=== PATIENT | male | born 1955 | race Caucasian/White ===

== ENCOUNTER → 2016-11-11 | Outpatient (CLI) | payer OTHER ==
[~2016-11-11] MED LIST: DEPA500T3 PO; IMIT50TA PO; KETO0.5S2 EACH EYE; LEVS0.123 PO; NEXI20CA PO; PROP60TA PO; SIMV20TA PO; TOPA50TA7 PO; ZYPR5TAB PO; [UNRECOGNIZED DRUG - CODE] EACH EYE
--- NOTE | 2016-11-11 15:48 | RADRPT ---
EXAM DATE/TIME: 11/11/2016 15:23 [facility] COMPARISON: No previous studies available for comparison. INDICATIONS : Bilateral flank pain. MEDICAL HISTORY : Hypercholesterolemia. Myocardial infarction. Hypothyroidism. CVA. Hypertension. Sleep apnea. Schizoph elsy. Bipolar disorder. SURGICAL HISTORY : Tonsillectomy. Rotator cuff, right. ENCOUNTER: Initial ACUITY: 1 day PAIN SCORE: 2/10 LOCATION: Bilateral flank MEASUREMENTS: RIGHT KIDNEY: 12.3 x 5.8 x 6.3 cm LEFT KIDNEY: 12.1 x 6.1 x 6.2 cm FINDINGS: RIGHT KIDNEY: Renal cortex is normal in thickness and echotexture. No hydronephrosis, stone, or mass. LEFT KIDNEY: Renal cortex is normal in thickness and echotexture. No hydronephrosis, stone, or mass. BLADDER: The bladder demonstrates circumferential wall thickening greater than expected for the degree of dist ention. CONCLUSION: Mild circumferential bladder wall thickening is noted. The kidneys are normal. Lan Guerra MD on November 11, 2016 at 15:46 Board Certified Radiologist. This report was verified electronically.
== END ==
LOC: HRAD 14:46
PROVIDERS: ATTEND Urology
DX: N20.0 Calculus of kidney (principal)
CPT/HCPCS: 76775

== ENCOUNTER 2016-11-20 12:24 | Emergency (ER) | payer OTHER ==
[~2016-11-20] VITALS: Ht 170.2 cm; Wt 68.0 kg
[~2016-11-20 12:24] MED LIST changes: -KETO0.5S2 EACH EYE
[2016-11-20 12:27] VITALS: BP 123/87; PULSE 76; RESP 16; TEMP 97.6; O2SAT 98
--- NOTE | 2016-11-20 13:21 | PD ---
HPI Chief Complaint: Pain: Acute or Chronic Time Seen by Provider: 12:55 Travel History International Travel<30 days: No Contact w/Intl Traveler<30days: No Traveled to known affect area: No History of Present Illness HPI 61-year-old male came to the emergency room with multiple pain related complains. He says his teeth are hurting, his neck hurts and his lower back hurts. In asking he said he did have a primary care but they no longer accept his insurance. So he was given the name off another provider in male who he has to make an appointment with. Meanwhile he is on chronic pain medication and is here to get medications. He also mentioned tingling of his fingertips of both hands. He does not appear to be in any significant distress currently. [facility] Past Medical History Narrative Medical List of his past medical, surgical, social and family history was reviewed from the nursing note. Asthma: No Blood Disorders: No Bipolar Disorder: Yes Anxiety: Yes Depression: Yes Heart Rhythm Problems: No Cancer: No Cardiac Catheterization: Yes (OCTOBER 2010) Cardiovascular Problems: Yes High Cholesterol: Yes Chemotherapy: No Chest Pain: Yes ([place] 2008) Congestive Heart Failure: No COPD: No Cerebrovascular Accident: Yes Diabetes: No Diminished Hearing: Yes (L EAR HEARING AIDE) Endocrine: No Gastrointestinal Disorders: Yes (COLITIS; GASTROPARESIS) Genitourinary: No Hepatitis: No Hiatal Hernia: No Heparin Induced Thrombocytopen: No Hypertension: Yes Immune Disorder: No Implanted Vascular Access Dvce: No Medical other: No Musculoskeletal: Yes (LOW BACK PAIN ) Neurologic: Yes (EPILEPSY , TRAUMATIC BRAIN INJURY ) Psychiatric: Yes (ANXIETY, DEPRESSION, PTSD) Reproductive: No Respiratory: Yes Myocardial Infarction: Yes (PER PT HAD IL IN [facility], REFUSED CARDIAC CATH) Schizophrenia: Yes Seizures: Yes Sleep Apnea: Yes (wears cpap) Thyroid Disease: Yes Influenza Vaccination: Yes PNEUMOCCOCAL Vaccine (Year): 3 Past Surgical History Abdominal Surgery: No AICD: No Body Medical Devices: NONE Cardiac Surgery: No Coronary Artery Bypass Graft: No Ear Surgery: No Eye Surgery: No Genitourinary Surgery: No Joint Replacement: No Oral Surgery: No Pacemaker: No Thoracic Surgery: No Other Surgery: Yes (SHOULDER RIGHT, LEFT WRIST) Family History Family Myocardial Infarction: No Social History Alcohol Use: No Tobacco Use: Yes (3 CIGARETTES A DAY) Substance Use: No Allergies-Medications (Allergen,Severity, Reaction): Coded Allergies: Benadryl (Verified Allergy, Severe, 11/20/16) RASH Chicken Meat (Verified Allergy, Severe, Rash, 11/20/16) Latex (Verified Allergy, Severe, Hives, 11/20/16) Morphine (Verified Allergy, Severe, RASH, 11/20/16) ITCHING AT IV SITE; LARGE REDDENED SCABS Motrin (Verified Allergy, Severe, Rash, 11/20/16) Oily Fish (Verified Allergy, Severe, 11/20/16) UNABLE TO CONFIRM Tylenol (Verified Allergy, Severe, 11/20/16) UNABLE TO CONFIRM Adhesives (Verified Allergy, Unknown, 11/20/16) Comments List of his allergies reviewed from the nursing note. Reported Meds & Prescriptions Reported Meds & Active Scripts Active Reported Zyprexa (Olanzapine) 5 Mg Tab 5 Mg PO HS Topamax (Topiramate) 50 Mg Tab 50 Mg PO BID Simvastatin 20 Mg Tab 20 Mg PO DAILY Propranolol (Propranolol HCl) 60 Mg Tab 60 Mg PO DAILY PRN Ketorolac Opth Drops 0.4% Drops 1 Drop EACH EYE Imitrex (Sumatriptan Succinate) 50 Mg Tab 50 Mg PO ONCE PRN If a satisfactory response has not been obtained at 2 hours, a second dose may be administered Levsin (Hyoscyamine Sulfate) 0.125 Mg Tab 0.125 Mg PO Q4H Depakote ER (Divalproex Sodium) 500 Mg Catrina 500 Mg PO BID Nexium (Esomeprazole DR) 20 Mg Capdr 20 Mg PO DAILY Narrative Medication List of his home medications reviewed from the nursing note. Review of Systems Except as stated in HPI: all other systems reviewed are Neg Physical Exam Narrative GENERAL: Awake, alert, no obvious distress SKIN: Focused skin assessment warm/dry. HEAD: Atraumatic. Normocephalic. EYES: Pupils equal and round. No scleral icterus. No injection or drainage. ENT: No nasal bleeding or discharge. Mucous membranes pink and moist. NECK: Trachea midline. No JVD. CARDIOVASCULAR: Regular rate and rhythm. No murmur appreciated. RESPIRATORY: No accessory muscle use. Clear to auscultation. Breath sounds equal bilaterally. GASTROINTESTINAL: Abdomen soft, non-tender, nondistended. Hepatic and splenic margins not palpable. MUSCULOSKELETAL: No obvious deformities. No clubbing. No cyanosis. No edema. NEUROLOGICAL: Awake and alert. No obvious cranial nerve deficits. Motor grossly within normal limits. Normal speech. PSYCHIATRIC: Appropriate mood and affect; insight and judgment normal. Data Data Last Documented VS Orders Acetamin-Hydrocod 325-5 Mg ([place] 5-325 (11/20/16 13:30) MDM Medical Decision Making Medical Screen Exam Complete: Yes Emergency Medical Condition: Yes Medical Record Reviewed: Yes Differential Diagnosis Acute on chronic pain, prescription refill Narrative Course 1:34 PM I have expressed to the patient that I am willing to give him pain medication in the emergency room but for his chronic pain management he needs to go to his primary care physician is not the right place for this. He will be discharged home. Procedures EKG Prior to Arrival: No Diagnosis Primary Impression: Chronic pain Qualified Code: G89.4 - Chronic pain syndrome Referrals: Primary Care Physician 1 week Additional Instructions: Please follow-up with your primary care to get a prescription refills. Emergency room should be utilized for emergencies only. Med/Other Pt SpecificInfo: No Change to Meds Disposition: 01 DISCHARGE HOME Condition: Deepti Arndt MD Nov 20, 2016 13:21 Additional Instructions: Please follow-up with your primary care to get a prescription refills. Emergency room should be utilized for emergencies only. Med/Other Pt SpecificInfo: No Change to Meds Disposition: 01 DISCHARGE HOME Condition: Deepti Arndt MD Nov 20, 2016 13:21
[2016-11-20] MEDS ORDERED: ACETAMINOPHEN/HYDROcodone 325 MG/5 MG TAB PO ONE (13:30)
[2016-11-20 13:52] VITALS: BP 120/84; PULSE 76; RESP 18; O2SAT 98
[2017-01-30] MEDS ORDERED: KETO0.5S2 EACH EYE (13:43)
== END 2016-11-20 13:54 | disposition home or self-care (01) ==
LOC: PHED 12:24
DX: G89.4 Chronic pain syndrome (principal); M54.2 Cervicalgia; M54.5 Low back pain; R20.2 Paresthesia of skin; I10 Essential (primary) hypertension; E07.9 Disorder of thyroid, unspecified; E78.00 Pure hypercholesterolemia, unspecified; G47.30 Sleep apnea, unspecified; H91.92 Unspecified hearing loss, left ear; Z72.0 Tobacco use; Z86.79 Personal history of other diseases of the circulatory system; Z87.19 Personal history of other diseases of the digestive system; Z86.69 Personal history of other diseases of the nervous system and sense organs; Z86.59 Personal history of other mental and behavioral disorders
CPT/HCPCS: 99283

== ENCOUNTER → 2016-12-31 | Outpatient (CLI) | payer OTHER ==
[~2016-12-31] MED LIST changes: +KETO0.5S2 EACH EYE
--- NOTE | 2016-12-31 09:42 | RADRPT ---
EXAM DATE/TIME: 12/31/2016 09:24 [facility] COMPARISON: CHEST PA & LAT, October 22, 2014, 14:42. INDICATIONS : Short of breath, asthma, sleep apnea MEDICAL HISTORY : Myocardial infarction. Hypothyroidism. CVA, schizophrenia, sleep apnea SURGICAL HISTORY : Tonsillectomy. right shoulder surgery ENCOUNTER: Initial ACUITY: 1 day PAIN SCORE: 0/10 LOCATION: Bilateral chest FINDINGS: PA and lateral views of the chest demonstrate the lungs to be symmetrically aerated without evidence of mass, infiltrate or effusion. The cardiomediastinal contours are unremarkable. Osseous structure s are intact. CONCLUSION: No acute intrathoracic disease. Dev Burton MD on December 31, 2016 at 9:40 Board Certified Radiologist. This report was verified electronically.
== END ==
LOC: HRAD 08:51
PROVIDERS: ATTEND Family Medicine Geriatric Medicine
DX: J45.909 Unspecified asthma, uncomplicated (principal); F17.290 Nicotine dependence, other tobacco product, uncomplicated
CPT/HCPCS: 71020

== ENCOUNTER 2017-03-06 13:27 | Emergency (ER) | payer OTHER ==
[~2017-03-06] VITALS: Ht 170.2 cm; Wt 67.0 kg
[~2017-03-06 13:27] MED LIST changes: -IMIT50TA PO; -SIMV20TA PO; -TOPA50TA7 PO; -[UNRECOGNIZED DRUG - CODE] EACH EYE
[2017-03-06 14:30] VITALS: BP 116/73; PULSE 55; PULSE 62; RESP 18; TEMP 97.7; O2SAT 98; O2SAT 99
[2017-03-06] MEDS ORDERED: ASPIRIN 81 MG CHEW TAB PO ONE (14:30)
[2017-03-06] MEDS ORDERED: SODIUM CHLORIDE 0.9% FLUSH 10 ML FLUSH IVF PRN (14:30)
[2017-03-06] MEDS ORDERED: DIVALPROEX SODIUM E.R. 500 MG TAB PO ONE (15:00)
[2017-03-06] MEDS ORDERED: oxyCODONE/ACETAMINOPHEN 5 MG/325 MG TAB PO ONE (15:00)
--- NOTE | 2017-03-06 15:09 | RADRPT ---
EXAM DATE/TIME: 03/06/2017 14:33 [facility] COMPARISON: CHEST SINGLE AP, January 15, 2016, 11:57. INDICATIONS : Chest pain today. MEDICAL HISTORY : Hypertension. Myocardial infarction. SURGICAL HISTORY : None. ENCOUNTER: Initial ACUITY: 1 day PAIN SCORE: 9/10 LOCATION: Bilateral chest FINDINGS: A single view of the chest demonstrates the lungs to be symmetrically aerated without evidence of mas s, infiltrate or effusion. The cardiomediastinal contours are unremarkable. Osseous structures are intact. CONCLUSION: No acute disease. Pio King MD on March 06, 2017 at 15:06 Board Certified Radiologist. This report was verified electronically.
[2017-03-06 15:29] LABS: AUTOMATED NEUTROPHIL # 6.5 TH/MM3 (1.8-7.7); BASOPHIL # 0.1 TH/MM3 (0-0.2); BASOPHIL % 0.6 % (0.0-2.0); EOSINOPHIL # 0.1 TH/MM3 (0-0.4); EOSINOPHIL % 0.7 % (0.0-4.0); HEMATOCRIT 41.5 % (39.0-51.0); HEMO FLAGS DIFF FINAL; LYMPH % 19.3 % (9.0-44.0); LYMPHOCYTE # 1.7 TH/MM3 (1.0-4.8); MEAN CELL VOLUME 90.3 FL (80.0-100.0); MEAN CORPUSCULAR HEMOGLOBIN 30.9 PG (27.0-34.0); MEAN CORPUSCULAR HGB CONC 34.2 % (32.0-36.0); MONO % 5.3 % (0.0-8.0); NEUT % 74.1 % (16.0-70.0); PLATELET COUNT 213 TH/MM3 (150-450); RED CELL DISTRIBUTION WIDTH 13.5 % (11.6-17.2); WHITE BLOOD COUNT 8.8 TH/MM3 (4.0-11.0)
[2017-03-06 15:43] LABS: APTT (PATIENT) 28.5 SEC (24.3-30.1); INTERNATIONAL NORMALIZED RATIO 1.2 RATIO; PROTHROMBIN TIME - PATIENT 12.9 SEC (9.8-11.6)
[2017-03-06 15:46] LABS: ANION GAP 9 MEQ/L (5-15); BLOOD UREA NITROGEN 12 MG/DL (7-18); CHLORIDE 105 MEQ/L (98-107); GLOMERULAR FILTRATION RATE 102 ML/MIN (>89); POTASSIUM 3.3 MEQ/L (3.5-5.1); SODIUM (NA) 139 MEQ/L (136-145)
[2017-03-06 15:57] LABS: CREATINE KINASE 88 U/L (39-308)
[2017-03-06 16:15] VITALS: BP 103/68; PULSE 64; RESP 18; O2SAT 99
--- NOTE | 2017-03-06 16:41 | PD ---
HPI Chief Complaint: Chest Pain Time Seen by Provider: 13:54 Travel History International Travel<30 days: No Contact w/Intl Traveler<30days: No Traveled to known affect area: No History of Present Illness HPI Patient is a 61-year-old male who comes in complaining of chest pain. He says he went to the bank and he started to feel pressure in his chest as well as shortness of breath. He has history of asthma, but has not tried his albuterol inhaler. He denies nausea or vomiting. He has not had fever or chills. Denies cough or cold. PFSH Past Medical History Asthma: No Blood Disorders: No Bipolar Disorder: Yes Anxiety: Yes Depression: Yes Heart Rhythm Problems: No Cancer: No Cardiac Catheterization: Yes (OCTOBER 2010) Cardiovascular Problems: Yes ([place] 2 YEARS AGO) High Cholesterol: Yes Chemotherapy: No Chest Pain: Yes ([place] 2008) Congestive Heart Failure: No COPD: No Cerebrovascular Accident: Yes Diabetes: No Diminished Hearing: Yes (L EAR HEARING AIDE) Endocrine: No Gastrointestinal Disorders: Yes (COLITIS; GASTROPARESIS) Genitourinary: No Hepatitis: No Hiatal Hernia: No Heparin Induced Thrombocytopen: No Hypertension: Yes Immune Disorder: No Implanted Vascular Access Dvce: No Musculoskeletal: Yes (LOW BACK PAIN ) Neurologic: Yes (EPILEPSY , TRAUMATIC BRAIN INJURY ) Psychiatric: Yes (ANXIETY, DEPRESSION, PTSD) Reproductive: No Respiratory: Yes Myocardial Infarction: Yes (PER PT HAD [facility] IN [facility], REFUSED CARDIAC CATH) Schizophrenia: Yes Seizures: Yes Sleep Apnea: Yes (wears cpap) Thyroid Disease: Yes Tetanus Vaccination: Unknown Influenza Vaccination: Yes PNEUMOCCOCAL Vaccine (Year): 3 ?: Not Past Surgical History Abdominal Surgery: No AICD: No Body Medical Devices: NONE Cardiac Surgery: No Coronary Artery Bypass Graft: No Ear Surgery: No Eye Surgery: No Genitourinary Surgery: No Joint Replacement: No Oral Surgery: No Pacemaker: No Thoracic Surgery: No Other Surgery: Yes (SHOULDER RIGHT, LEFT WRIST) Social History Alcohol Use: Yes (RARELY TWICE A YEAR) Tobacco Use: Yes (3 CIGARETTES A DAY) Substance Use: No Allergies-Medications (Allergen,Severity, Reaction): Coded Allergies: Benadryl (Verified Allergy, Severe, 01/30/17) RASH Chicken Meat (Verified Allergy, Severe, Rash, 01/30/17) Latex (Verified Allergy, Severe, Hives, 01/30/17) Morphine (Verified Allergy, Severe, RASH, 01/30/17) ITCHING AT IV SITE; LARGE REDDENED SCABS Motrin (Verified Allergy, Severe, Rash, 01/30/17) Oily Fish (Verified Allergy, Severe, 01/30/17) UNABLE TO CONFIRM Tylenol (Verified Allergy, Severe, 01/30/17) UNABLE TO CONFIRM Adhesives (Verified Allergy, Unknown, 01/30/17) Reported Meds & Prescriptions Reported Meds & Active Scripts Active Reported Ketorolac Opth Drops 0.5% Drops 1 Drop EACH EYE Zyprexa (Olanzapine) 5 Mg Tab 5 Mg PO HS Propranolol (Propranolol HCl) 60 Mg Tab 60 Mg PO DAILY PRN Levsin (Hyoscyamine Sulfate) 0.125 Mg Tab 0.125 Mg PO Q4H Depakote ER (Divalproex Sodium) 500 Mg Catrina 500 Mg PO BID Nexium (Esomeprazole DR) 20 Mg Capdr 20 Mg PO DAILY Review of Systems Except as stated in HPI: all other systems reviewed are Neg General / Constitutional: No: Fever, Chills Eyes: No: Blurred Vision HENT: No: Headaches, Lightheadedness Cardiovascular: Positive: Chest Pain or Discomfort Respiratory: Positive: Shortness of Breath Gastrointestinal: No: Nausea, Vomiting Genitourinary: No: Dysuria Skin: No Rash, No Itching Neurologic: No: Weakness, Dizziness Physical Exam Narrative GENERAL: Awake and alert, in no acute distress. SKIN: Focused skin assessment warm/dry. HEAD: Atraumatic. Normocephalic. EYES: Pupils equal and round. No scleral icterus. ENT: Mucous membranes pink and moist. NECK: Trachea midline. No JVD. CARDIOVASCULAR: Regular rate and rhythm. No murmur appreciated. RESPIRATORY: No accessory muscle use. Lightly decreased breath sounds on the right. Breath sounds equal bilaterally. GASTROINTESTINAL: Abdomen soft, non-tender, nondistended. MUSCULOSKELETAL: No obvious deformities. No clubbing. No cyanosis. No edema. NEUROLOGICAL: Awake and alert. No obvious cranial nerve deficits. Motor grossly within normal limits. Normal speech. PSYCHIATRIC: Appropriate mood and affect; insight and judgment normal. Data Data Last Documented VS Vital Signs Date Time Temp Pulse Resp B/P Pulse Ox O2 Delivery O2 Flow Rate FiO2 03/06/17 16:15 64 18 103/68 99 Room Air 03/06/17 14:30 97.7 Orders Electrocardiogram (03/06/17 14:30) Basic Metabolic Panel (Bmp) (03/06/17 14:30) Ckmb (Isoenzyme) Profile (03/06/17 14:30) Complete Blood Count With Diff (03/06/17 14:30) Prothrombin Time / Inr (Pt) (03/06/17 14:30) Act Partial Throm Time (Ptt) (03/06/17 14:30) Troponin I (03/06/17 14:30) Chest, Single Ap (03/06/17 14:30) Ecg Monitoring (03/06/17 14:30) Bilateral Bp Monitoring (03/06/17 14:30) Iv Access Insert/Monitor (03/06/17 14:30) Oximetry (03/06/17 14:30) Oxygen Administration (03/06/17 14:30) Aspirin Chew (Aspirin Chew) (03/06/17 14:30) Sodium Chloride 0.9% Flush (Ns Flush) (03/06/17 14:30) Divalproex Er (Depakote Er) (03/06/17 15:00) Oxycodone-Acetamin 5-325 Mg (Percocet (03/06/17 15:00) Labs Laboratory Tests Test 03/06/17 14:55 White Blood Count 8.8 TH/MM3 Red Blood Count 4.60 MIL/MM3 Hemoglobin 14.2 GM/DL Hematocrit 41.5 % Mean Corpuscular Volume 90.3 FL Mean Corpuscular Hemoglobin 30.9 PG Mean Corpuscular Hemoglobin 34.2 % Concent Red Cell Distribution Width 13.5 % Platelet Count 213 TH/MM3 Mean Platelet Volume 7.4 FL Neutrophils (%) (Auto) 74.1 % Lymphocytes (%) (Auto) 19.3 % Monocytes (%) (Auto) 5.3 % Eosinophils (%) (Auto) 0.7 % Basophils (%) (Auto) 0.6 % Neutrophils # (Auto) 6.5 TH/MM3 Lymphocytes # (Auto) 1.7 TH/MM3 Monocytes # (Auto) 0.5 TH/MM3 Eosinophils # (Auto) 0.1 TH/MM3 Basophils # (Auto) 0.1 TH/MM3 CBC Comment DIFF FINAL Differential Comment Prothrombin Time 12.9 SEC Prothromb Time International 1.2 RATIO Ratio Activated Partial 28.5 SEC Thromboplast Time Sodium Level 139 MEQ/L Potassium Level 3.3 MEQ/L Chloride Level 105 MEQ/L Carbon Dioxide Level 25.0 MEQ/L Anion Gap 9 MEQ/L Blood Urea Nitrogen 12 MG/DL Creatinine 0.77 MG/DL Estimat Glomerular Filtration 102 ML/MIN Rate Random Glucose 86 MG/DL Calcium Level 9.0 MG/DL Total Creatine Kinase 88 U/L Troponin I LESS THAN 0.02 NG/ML MDM Medical Decision Making Medical Screen Exam Complete: Yes Emergency Medical Condition: Yes Medical Record Reviewed: Yes Interpretation(s) ECG show sinus kulwant at 58, no ST elevation or depression Differential Diagnosis ACS versus NSTEMI versus STEMI Narrative Course Patient is a 61-year-old male who comes in complaining of chest pain. Exam shows no acute abnormalities. IV established, labs sent. Patient connected to the twister hand. Labs show no acute abnormalities. Patient given aspirin as well as a Percocet for pain. Given a DuoNeb. Chest x-ray shows no acute abnormalities. Patient advised he should stay in the chest pain center for further evaluation. Advised that we could not rule out a heart attack with just 1 testing in the emergency department. I advised that if he leaves he could have a massive heart attack and . He voices understanding of these risks and would like to leave AGAINST MEDICAL ADVICE. He is alert and oriented 3. AMA: The risks of leaving against medical advice without further evaluation treatment were discussed with the patient. These risks include cardiac dysfunction, cardiac dysrhythmia, possible heart attack, possible stroke or . The patient indicated understanding of these risks and appeared to have the capacity to make this decision. Diagnosis Primary Impression: Chest pain Qualified Code: R07.9 - Chest pain, unspecified type Disposition: AGAINST MEDICAL ADVICE Condition: Stable Melissa Pederson MD Mar 06, 2017 16:41
--- NOTE | 2017-03-07 10:15 | EKG ---
Date Performed: 03/06/2017 Time Performed: 15:16:08 PTAGE: 61 years EKG: SINUS BRADYCARDIA WITH SINUS ARRHYTHMIA MARKED LEFT AXIS DEVIATION ABNORMAL ECG Since PREVIOUS TRACING , no significant change noted PREVIOUS TRACIN01/15/2016 11.51 DOCTOR: Ramez Gonzalez Interpretating Date/Time 03/07/2017 10:14:06
== END 2017-03-06 17:16 | disposition left against medical advice (07) ==
LOC: NEPE 13:27
DX: R07.9 Chest pain, unspecified (principal); I10 Essential (primary) hypertension; E78.00 Pure hypercholesterolemia, unspecified; R94.31 Abnormal electrocardiogram [ECG] [EKG]
CPT/HCPCS: 71010; 80048; 82550; 84484; 85025; 85610; 85730; 93005; 99285

== ENCOUNTER 2017-07-16 22:32 | Emergency (ER) | payer OTHER ==
[~2017-07-16] VITALS: Ht 172.7 cm; Wt 60.0 kg
[2017-07-16 22:47] VITALS: BP 104/75; PULSE 67; RESP 16; TEMP 98.4; O2SAT 99
--- NOTE | 2017-07-16 23:24 | RADRPT ---
EXAM DATE/TIME: 07/16/2017 23:12 [facility] COMPARISON: CHEST SINGLE AP, March 06, 2017, 14:33. CHEST PA & LAT, December 31, 2016, 9:24. INDICATIONS : Chest pain. MEDICAL HISTORY : Hypertension. Myocardial infarction. SURGICAL HISTORY : None. ENCOUNTER: Initial ACUITY: 1 day PAIN SCORE: 7/10 LOCATION: Bilateral chest FINDINGS: PA and lateral views of the chest demonstrate the lungs to be symmetrically aerated without evidence of mass, infiltrate or effusion. The cardiomediastinal contours are unremarkable. Osseous structure s are intact. CONCLUSION: No acute cardiopulmonary disease. Bennett Moreno MD on July 16, 2017 at 23:22 Board Certified Radiologist. This report was verified electronically.
--- NOTE | 2017-07-16 23:57 | PD ---
HPI Chief Complaint: Chest Pain Time Seen by Provider: 22:39 Travel History International Travel<30 days: No Contact w/Intl Traveler<30days: No Traveled to known affect area: No History of Present Illness HPI pt reports walking in the street then doubling over in CP left sided feel hit his left ribs on concrete and then call 911 for CP and fall. History of CAD and he describes "some clotted artery in back of neck" poor historian and vague details of syncope vs pain related collapse, unclear if LOC . 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) Endocrine: No Gastrointestinal Disorders: Yes (COLITIS; GASTROPARESIS) Genitourinary: No Hepatitis: No Hiatal Hernia: No Heparin Induced Thrombocytopen: No Hypertension: Yes Immune Disorder: No Implanted Vascular Access Dvce: No Medical other: No Musculoskeletal: Yes (LOW BACK PAIN ) Neurologic: Yes (EPILEPSY , TRAUMATIC BRAIN INJURY ) Psychiatric: Yes (ANXIETY, DEPRESSION, PTSD) Reproductive: No Respiratory: Yes Myocardial Infarction: Yes (PER PT HAD NM IN [facility], REFUSED CARDIAC CATH) Schizophrenia: Yes Seizures: Yes Sleep Apnea: Yes (wears cpap) Thyroid Disease: Yes PNEUMOCCOCAL Vaccine (Year): 3 Past Surgical History Abdominal Surgery: No AICD: No Body Medical Devices: NONE Cardiac Surgery: No Coronary Artery Bypass Graft: No Ear Surgery: No Eye Surgery: No Genitourinary Surgery: No Joint Replacement: No Oral Surgery: No Pacemaker: No Thoracic Surgery: No Other Surgery: Yes (SHOULDER RIGHT, LEFT WRIST) Social History Alcohol Use: Yes (1 OR 2 A MONTH) Tobacco Use: Yes (1 PPD) Substance Use: Yes (MARIJUANA) Allergies-Medications (Allergen,Severity, Reaction): Coded Allergies: acetaminophen (Unverified Allergy, Severe, 07/16/17) UNABLE TO CONFIRM chicken derived (Unverified Allergy, Severe, Rash, 07/16/17) diphenhydramine (Unverified Allergy, Severe, 07/16/17) RASH fish oil (Unverified Allergy, Severe, 07/16/17) UNABLE TO CONFIRM ibuprofen (Unverified Allergy, Severe, Rash, 07/16/17) latex (Unverified Allergy, Severe, Hives, 07/16/17) morphine (Unverified Allergy, Severe, RASH, 07/16/17) ITCHING AT IV SITE; LARGE REDDENED SCABS adhesive (Unverified Allergy, Unknown, 07/16/17) Reported Meds & Prescriptions Reported Meds & Active Scripts Active Calcium 500 +D (Calcium Carbonate-Cholecalciferol) 500-400 Mg-Unit Tab 1 Tab PO DAILY Potassium Chloride ER (Potassium Chloride) 20 Meq Tab 20 Meq PO DAILY Reported Ketorolac Opth Drops 0.5% Drops 1 Drop EACH EYE Zyprexa (Olanzapine) 5 Mg Tab 5 Mg PO HS Propranolol (Propranolol HCl) 60 Mg Tab 60 Mg PO DAILY PRN Levsin (Hyoscyamine Sulfate) 0.125 Mg Tab 0.125 Mg PO Q4H Depakote ER (Divalproex Sodium) 500 Mg Catrina 500 Mg PO BID Nexium (Esomeprazole DR) 20 Mg Capdr 20 Mg PO DAILY Review of Systems Except as stated in HPI: all other systems reviewed are Neg Cardiovascular: Positive: Chest Pain or Discomfort, Syncope Physical Exam Narrative GENERAL: Nontoxic-appearing awake alert no signs of sepsis SKIN: Warm and dry. HEAD: Atraumatic. Normocephalic. EYES: Pupils equal and round. No scleral icterus. No injection or drainage. ENT: No nasal bleeding or discharge. Mucous membranes pink and moist. NECK: Trachea midline. No JVD. CARDIOVASCULAR: Regular rate and rhythm. chest tenderness where he fell lateral left ribs , no step off felt and no crepitus RESPIRATORY: No accessory muscle use. Clear to auscultation. Breath sounds equal bilaterally. GASTROINTESTINAL: Abdomen soft, non-tender, nondistended. Hepatic and splenic margins not palpable. MUSCULOSKELETAL: Extremities without clubbing, cyanosis, or edema. No obvious deformities. NEUROLOGICAL: Awake and alert. No obvious cranial nerve deficits. Motor grossly within normal limits. Five out of 5 muscle strength in the arms and legs. Normal speech. PSYCHIATRIC: Appropriate mood and affect; insight and judgment normal. Data Data Last Documented VS Orders Orders Electrocardiogram (07/16/17 22:54) Complete Blood Count With Diff (07/16/17 22:54) Comprehensive Metabolic Panel (07/16/17 22:54) Troponin I (07/16/17 22:54) Lipase (07/16/17 22:54) Chest, Pa & Lat (07/16/17 ) Potassium Chloride (Kcl) (07/17/17 00:45) Calcium Carbonate (Oscal) (07/17/17 00:45) Ketorolac Inj (Toradol Inj) (07/17/17 02:15) Orthostatic Vital Signs (07/17/17 02:55) Troponin I (07/17/17 02:56) Electrocardiogram (07/17/17 ) Ed Discharge Order (07/17/17 03:43) Labs Laboratory Tests Test 07/16/17 23:02 07/17/17 03:02 White Blood Count 6.5 TH/MM3 Red Blood Count 4.34 MIL/MM3 Hemoglobin 14.0 GM/DL Hematocrit 40.6 % Mean Corpuscular Volume 93.5 FL Mean Corpuscular Hemoglobin 32.3 PG Mean Corpuscular Hemoglobin Concent 34.5 % Red Cell Distribution Width 14.7 % Platelet Count 203 TH/MM3 Mean Platelet Volume 8.0 FL Neutrophils (%) (Auto) 51.3 % Lymphocytes (%) (Auto) 41.1 % Monocytes (%) (Auto) 5.4 % Eosinophils (%) (Auto) 1.2 % Basophils (%) (Auto) 1.0 % Neutrophils # (Auto) 3.3 TH/MM3 Lymphocytes # (Auto) 2.7 TH/MM3 Monocytes # (Auto) 0.3 TH/MM3 Eosinophils # (Auto) 0.1 TH/MM3 Basophils # (Auto) 0.1 TH/MM3 CBC Comment AUTO DIFF Differential Comment AUTO DIFF CONFIRMED Platelet Estimate NORMAL Platelet Morphology Comment NORMAL Acanthocytes 1+ Blood Urea Nitrogen 12 MG/DL Creatinine 0.54 MG/DL Random Glucose 73 MG/DL Total Protein 5.5 GM/DL Albumin 2.8 GM/DL Calcium Level 7.2 MG/DL Alkaline Phosphatase 50 U/L Aspartate Amino Transf (AST/SGOT) 14 U/L Alanine Aminotransferase (ALT/SGPT) 23 U/L Total Bilirubin 0.4 MG/DL Sodium Level 144 MEQ/L Potassium Level 3.1 MEQ/L Chloride Level 112 MEQ/L Carbon Dioxide Level 23.7 MEQ/L Anion Gap 8 MEQ/L Estimat Glomerular Filtration Rate 154 ML/MIN Protein Corrected Calcium 8.1 MG/DL Troponin I LESS THAN 0.02 NG/ML LESS THAN 0.02 NG/ML Lipase 112 U/L [facility] Medical Decision Making Medical Screen Exam Complete: Yes Emergency Medical Condition: Yes Interpretation(s) EKG NSR rate 57 Differential Diagnosis Chest pain from myocardial ischemia versus chest pain of acid reflux gastritis versus pulmonary contusion versus costochondritis versus rib contusion Narrative Course 2 EKGs and 2 troponins are negative patient is observed in the ER for 5 hours no arrhythmias are noted he is replaced his potassium replaced his calcium and he is discharged follow-up as an outpatient Diagnosis Primary Impression: Chest pain Qualified Codes: R07.9 - Chest pain, unspecified Additional Impression: Syncope, near Patient Instructions: Chest Pain (ED), General Instructions Scripts Calcium Carbonate-Cholecalciferol (Calcium 500 +D) 500-400 Mg-Unit Tab 1 TAB PO DAILY for Calcium Supplement, #30 TAB 0 Refills Prov: Pranay Dockery MD 07/17/17 Potassium Chloride ER (Potassium Chloride ER) 20 Meq Tab 20 MEQ PO DAILY for Electrolyte Replacement, #30 TAB 0 Refills Prov: Pranay Dockery MD 07/17/17 Disposition: 01 DISCHARGE HOME Condition: Good Pranay Dockery MD Jul 16, 2017 23:57
[2017-07-17 00:04] LABS: AUTOMATED NEUTROPHIL # 3.3 TH/MM3 (1.8-7.7); BASOPHIL # 0.1 TH/MM3 (0-0.2); EOSINOPHIL # 0.1 TH/MM3 (0-0.4); EOSINOPHIL % 1.2 % (0.0-4.0); HEMATOCRIT 40.6 % (39.0-51.0); LYMPH % 41.1 % (9.0-44.0); LYMPHOCYTE # 2.7 TH/MM3 (1.0-4.8); MEAN CELL VOLUME 93.5 FL (80.0-100.0); MEAN CORPUSCULAR HEMOGLOBIN 32.3 PG (27.0-34.0); MEAN CORPUSCULAR HGB CONC 34.5 % (32.0-36.0); MONO % 5.4 % (0.0-8.0); NEUT % 51.3 % (16.0-70.0); PLATELET COUNT 203 TH/MM3 (150-450); RED BLOOD COUNT 4.34 MIL/MM3 (4.50-5.90); RED CELL DISTRIBUTION WIDTH 14.7 % (11.6-17.2); WHITE BLOOD COUNT 6.5 TH/MM3 (4.0-11.0)
[2017-07-17 00:18] LABS: HEMO FLAGS AUTO DIFF
[2017-07-17 00:24] LABS: ALKALINE PHOSPHATASE 50 U/L (45-117); ALT (GPT) 23 U/L (12-78); ANION GAP 8 MEQ/L (5-15); AST (GOT) 14 U/L (15-37); BICARBONATE 23.7 MEQ/L (21.0-32.0); BLOOD UREA NITROGEN 12 MG/DL (7-18); CALCIUM-PROTEIN CORRECTED 8.1 MG/DL (8.5-10.1); CHLORIDE 112 MEQ/L (98-107); GLOMERULAR FILTRATION RATE 154 ML/MIN (>89); POTASSIUM 3.1 MEQ/L (3.5-5.1); SODIUM (NA) 144 MEQ/L (136-145); TOTAL BILIRUBIN ADULT 0.4 MG/DL (0.2-1.0)
[2017-07-17 00:34] VITALS: BP 110/59; PULSE 56; RESP 16; O2SAT 98
[2017-07-17] MEDS ORDERED: POTASSIUM CHLORIDE 20 MEQ CONTROLLED RELEASE TAB PO ONE (00:45)
[2017-07-17] MEDS ORDERED: CALCIUM CARBONATE 1.25 GM (CA 500 MG) TAB PO SCH (00:45)
[2017-07-17 01:03] LABS: SCAN/DIFF AUTO DIFF CONFIRMED
[2017-07-17 01:04] LABS: PLATELET ESTIMATE SMEAR NORMAL (NORMAL); PLATELET MORPHOLOGY NORMAL (NORMAL)
[2017-07-17 01:05] LABS: ACANTHOCYTES 1+ (NORMAL)
[2017-07-17 02:01] VITALS: BP 129/65; PULSE 76; RESP 16; O2SAT 98
[2017-07-17] MEDS ORDERED: KETOROLAC TROMETHAMINE 30 MG/ML (IVP) VIAL IV PUSH ONE (02:15)
[2017-07-17 03:00] VITALS: BP_SYST 102; BP_SYST 105; BP_SYST 108; BP_DIAS 57; BP_DIAS 70; BP_DIAS 80; RESP 16
[2017-07-17] MEDS ORDERED: POTA-163 PO (04:06)
[2017-07-17] MEDS ORDERED: CALC1TAB12 PO (04:06)
--- NOTE | 2017-07-17 14:04 | EKG ---
Date Performed: 07/16/2017 Time Performed: 22:44:25 PTAGE: 61 years EKG: Sinus rhythm SEPTAL MYOCARDIAL INFARCTION ABNORMAL ECG Compared to prior tracing no significant change PREVIOUS TRACING DOCTOR: Sommer Avery Interpretating Date/Time 07/17/2017 14:03:32
--- NOTE | 2017-07-17 14:06 | EKG ---
Date Performed: 07/17/2017 Time Performed: 03:14:15 PTAGE: 61 years EKG: SINUS BRADYCARDIA POSSIBLE RIGHT VENTRICULAR CONDUCTION DELAY SEPTAL MYOCARDIAL INFARCTION ABNORMAL ECG Compared to prior tracing no significant change PREVIOUS TRACING : 03/06/2017 15.16 DOCTOR: Sommer Avery Interpretating Date/Time 07/17/2017 14:03:51
== END 2017-07-17 04:07 | disposition home or self-care (01) ==
LOC: NEPC 22:32
DX: R07.9 Chest pain, unspecified (principal); R55 Syncope and collapse; R94.31 Abnormal electrocardiogram [ECG] [EKG]; R00.1 Bradycardia, unspecified; I25.2 Old myocardial infarction; I25.10 Atherosclerotic heart disease of native coronary artery without angina pectoris; I10 Essential (primary) hypertension; G40.909 Epilepsy, unspecified, not intractable, without status epilepticus; E07.9 Disorder of thyroid, unspecified; F17.200 Nicotine dependence, unspecified, uncomplicated
CPT/HCPCS: 71020; 80053; 83690; 84484; 85025; 93005; 96374; 99285; J1885

== ENCOUNTER 2017-09-09 12:19 | Emergency (ER) | payer OTHER ==
[~2017-09-09 12:19] MED LIST changes: +CALC1TAB12 PO; +POTA-163 PO
[2017-09-09 12:32] VITALS: BP 148/78; PULSE 98; RESP 18; TEMP 97.9; O2SAT 99
[2017-09-09 13:01] LABS: BILIRUBIN, URINE NEG (NEG); BLOOD, URINE NEG (NEG); GLUCOSE,URINE NEG (NEG); HYALINE CAST, URINE 2 /lpf (RARE); KETONE, URINE 10 mg/dL (NEG); MUCUS URINE MANY /lpf (OCC); NITRITE,URINE NEG (NEG); URINE COLOR YELLOW (YELLW/STRAW); URINE LEUKOCYTE ESTERASE NEG (NEG)
[2017-09-09 13:10] LABS: ALKALINE PHOSPHATASE 78 U/L (45-117); CREATININE 1.04 MG/DL (0.60-1.30); GLOMERULAR FILTRATION RATE 72 ML/MIN (>89); TOTAL BILIRUBIN ADULT 0.9 MG/DL (0.2-1.0); TOTAL PROTEIN 7.6 GM/DL (6.4-8.2)
[2017-09-09 13:19] LABS: ALBUMIN 3.9 GM/DL (3.4-5.0); ALT (GPT) 36 U/L (12-78); AST (GOT) 46 U/L (15-37); BICARBONATE 28.6 MEQ/L (21.0-32.0); BLOOD UREA NITROGEN 8 MG/DL (7-18); CALCIUM 9.2 MG/DL (8.5-10.1); CHLORIDE 102 MEQ/L (98-107); GLUCOSE,RANDOM 117 MG/DL (74-106); SODIUM (NA) 139 MEQ/L (136-145)
--- NOTE | 2017-09-09 13:38 | PD ---
HPI Chief Complaint: Psychiatric Symptoms Time Seen by Provider: 13:33 Travel History International Travel<30 days: No Contact w/Intl Traveler<30days: No Traveled to known affect area: No History of Present Illness HPI 62-year-old male presents under Pagan act initiated by the Police Department. According to his paperwork, "subject stated that he wanted to harm himself. Subject stated that he wants to harm himself because he is depressed." The patient does report that he is depressed. He was having a "panic attack" today and his telephonic case manager called and asked him how he was doing. The telephonic case manager ended up calling the police out of concern. The patient is currently denying any suicidal ideation. He does report that he was recently hospitalized at a hospital in [place] for psychiatric reasons. His medication regimen was changed in some way and 4 days ago he did quit using his medications. He denies any homicidal ideation. He denies any illicit drug or alcohol use. Just prior to my examination the patient reportedly slipped and fell in the bathroom and is complaining of left rib pain and lower back pain. He has no other complaints at this time. PFSH Past Medical History Asthma: No Blood Disorders: No Bipolar Disorder: Yes Anxiety: Yes Depression: Yes Heart Rhythm Problems: No Cancer: No Cardiac Catheterization: Yes (OCTOBER 2010) Cardiovascular Problems: Yes ([place] 2 YEARS AGO) High Cholesterol: Yes Chemotherapy: No Chest Pain: Yes ([place] 2008) Congestive Heart Failure: No COPD: No Cerebrovascular Accident: Yes Diabetes: No Diminished Hearing: Yes (L EAR HEARING AID) Endocrine: No Gastrointestinal Disorders: Yes (COLITIS; GASTROPARESIS) Genitourinary: No Hepatitis: No Hiatal Hernia: No Heparin Induced Thrombocytopen: No Hypertension: Yes Immune Disorder: No Implanted Vascular Access Dvce: No Musculoskeletal: Yes (LOW BACK PAIN ) Neurologic: Yes (EPILEPSY , TRAUMATIC BRAIN INJURY ) Psychiatric: Yes (ANXIETY, DEPRESSION, PTSD) Reproductive: No Respiratory: Yes Myocardial Infarction: Yes (PER PT HAD IL IN [facility], REFUSED CARDIAC CATH) Schizophrenia: Yes Seizures: Yes Sleep Apnea: Yes (wears cpap) Thyroid Disease: Yes PNEUMOCCOCAL Vaccine (Year): 3 ?: Not Past Surgical History Abdominal Surgery: No AICD: No Body Medical Devices: NONE Cardiac Surgery: No Coronary Artery Bypass Graft: No Ear Surgery: No Eye Surgery: No Genitourinary Surgery: No Joint Replacement: No Oral Surgery: No Pacemaker: No Thoracic Surgery: No Other Surgery: Yes (SHOULDER RIGHT, LEFT WRIST) Social History Alcohol Use: Yes (1 OR 2 A MONTH) Tobacco Use: Yes (1 PPD) Substance Use: Yes (MARIJUANA) Allergies-Medications (Allergen,Severity, Reaction): Coded Allergies: acetaminophen (Unverified Allergy, Severe, 09/09/17) UNABLE TO CONFIRM chicken derived (Unverified Allergy, Severe, Rash, 09/09/17) diphenhydramine (Unverified Allergy, Severe, 09/09/17) RASH fish oil (Unverified Allergy, Severe, 09/09/17) UNABLE TO CONFIRM ibuprofen (Unverified Allergy, Severe, Rash, 09/09/17) latex (Unverified Allergy, Severe, Hives, 09/09/17) morphine (Unverified Allergy, Severe, RASH, 09/09/17) ITCHING AT IV SITE; LARGE REDDENED SCABS adhesive (Unverified Allergy, Unknown, 09/09/17) Reported Meds & Prescriptions Reported Meds & Active Scripts Active Calcium 500 +D (Calcium Carbonate-Cholecalciferol) 500-400 Mg-Unit Tab 1 Tab PO DAILY Potassium Chloride ER (Potassium Chloride) 20 Meq Tab 20 Meq PO DAILY Reported Ketorolac Opth Drops 0.5% Drops 1 Drop EACH EYE Zyprexa (Olanzapine) 5 Mg Tab 5 Mg PO HS Propranolol (Propranolol HCl) 60 Mg Tab 60 Mg PO DAILY PRN Levsin (Hyoscyamine Sulfate) 0.125 Mg Tab 0.125 Mg PO Q4H Depakote ER (Divalproex Sodium) 500 Mg Catrina 500 Mg PO BID Nexium (Esomeprazole DR) 20 Mg Capdr 20 Mg PO DAILY Review of Systems Except as stated in HPI: all other systems reviewed are Neg Physical Exam Narrative GENERAL: Well-developed well-nourished male in no acute distress SKIN: Warm and dry. No bruising or soft tissue swelling HEAD: Atraumatic. Normocephalic. EYES: Pupils equal and round. No scleral icterus. No injection or drainage. ENT: No nasal bleeding or discharge. Mucous membranes pink and moist. NECK: Trachea midline. No JVD. CARDIOVASCULAR: Regular rate and rhythm. No murmur appreciated. RESPIRATORY: No accessory muscle use. Clear to auscultation. Breath sounds equal bilaterally. GASTROINTESTINAL: Abdomen soft, non-tender, nondistended. Hepatic and splenic margins not palpable. MUSCULOSKELETAL: No obvious deformities. Surgical scar noted on the lower back. There is some tenderness to palpation some lower back and left lateral lower rib cage with no crepitus. NEUROLOGICAL: Awake and alert. No obvious cranial nerve deficits. Motor grossly within normal limits. Normal speech. PSYCHIATRIC: Appropriate mood and affect; insight and judgment normal. Data Data Last Documented VS Vital Signs Date Time Temp Pulse Resp B/P (MAP) Pulse Ox O2 Delivery O2 Flow Rate FiO2 09/09/17 12:32 97.9 98 18 148/78 (101) 99 Orders Orders Complete Blood Count With Diff (09/09/17 12:23) Comprehensive Metabolic Panel (09/09/17 12:23) Urinalysis - C+S If Indicated (09/09/17 12:23) Psych Screen (09/09/17 12:23) Drug Screen, Random Urine (09/09/17 12:23) Chest, Single Ap (09/09/17 ) Spine, Lumbar - Ltd (Ap & Lat) (09/09/17 ) Potassium Chloride (Kcl) (09/09/17 14:30) Labs Laboratory Tests Test 09/09/17 12:29 Urine Color YELLOW Urine Turbidity CLEAR Urine pH 6.0 Urine Specific [place] 1.018 Urine Protein TRACE mg/dL Urine Glucose (UA) NEG mg/dL Urine Ketones 10 mg/dL Urine Occult Blood NEG Urine Nitrite NEG Urine Bilirubin NEG Urine Urobilinogen 2.0 MG/DL Urine Leukocyte Esterase NEG Urine RBC 2 /hpf Urine WBC 1 /hpf Urine Hyaline Casts 2 /lpf Urine Mucus MANY /lpf Microscopic Urinalysis Comment CULT NOT INDICATED Blood Urea Nitrogen 8 MG/DL Creatinine 1.04 MG/DL Random Glucose 117 MG/DL Total Protein 7.6 GM/DL Albumin 3.9 GM/DL Calcium Level 9.2 MG/DL Alkaline Phosphatase 78 U/L Aspartate Amino Transf (AST/SGOT) 46 U/L Alanine Aminotransferase (ALT/SGPT) 36 U/L Total Bilirubin 0.9 MG/DL Sodium Level 139 MEQ/L Potassium Level 3.2 MEQ/L Chloride Level 102 MEQ/L Carbon Dioxide Level 28.6 MEQ/L Anion Gap 8 MEQ/L Estimat Glomerular Filtration Rate 72 ML/MIN Urine Opiates Screen NEG Urine Barbiturates Screen NEG Urine Amphetamines Screen NEG Urine Benzodiazepines Screen POS Urine Cocaine Screen POS Urine Cannabinoids Screen POS MDM Medical Decision Making Medical Screen Exam Complete: Yes Emergency Medical Condition: Yes Medical Record Reviewed: Yes Differential Diagnosis Medication noncompliance, acute psychosis, major depressive disorder, bipolar disorder, substance induced mood disorder Narrative Course 62-year-old male presents under Pagan act for psychiatric evaluation. He is complaining of some lower back pain and left rib cage pain after a fall. Mental health screening discussed with the patient. Psychiatric screen ordered. Potassium 3.2, oral potassium chloride administered. X-ray imaging reveals no acute abnormalities. Drug screen reveals positive benzodiazepines, cocaine, cannabinoids. Medically cleared. Diagnosis Primary Impression: Polysubstance abuse Ray Foster Sep 09, 2017 13:38
[2017-09-09] MEDS ORDERED: POTASSIUM CHLORIDE 20 MEQ CONTROLLED RELEASE TAB PO ONE (14:30)
--- NOTE | 2017-09-09 14:31 | RADRPT ---
EXAM DATE/TIME: 09/09/2017 13:54 [facility] COMPARISON: No previous studies available for comparison. INDICATIONS : Lower back pain; Slipped and fell today. MEDICAL HISTORY : None. SURGICAL HISTORY : Lumbar fusion. ENCOUNTER: Initial ACUITY: 1 day PAIN SCORE: 6/10 LOCATION: Bilateral lumbar spine. FINDINGS: Degenerative changes and scoliosis of the lumbar spine are noted. Hardware is noted at the L5 and S1 levels status post fusion. There is no acute fracture or spondylolisthesis. No spondylolysis is noted . CONCLUSION: Degenerative changes and scoliosis of lumbar spine. No acute fracture, spondylolisthe sis or spondylolysis. Angel Driver MD on September 09, 2017 at 14:28 Board Certified Radiologist. This report was verified electronically.
--- NOTE | 2017-09-09 15:25 | RADRPT ---
EXAM DATE/TIME: 09/09/2017 13:51 [facility] COMPARISON: CHEST SINGLE AP, March 06, 2017, 14:33. INDICATIONS : Chest discomfort; Slipped and fell today. MEDICAL HISTORY : Hypertension. Myocardial infarction. CVA. Seizure. SURGICAL HISTORY : Cardiac cath. Lumbar fusion. ENCOUNTER: Initial ACUITY: 1 day PAIN SCORE: 3/10 LOCATION: Bilateral chest FINDINGS: A single view of the chest demonstrates the lungs to be symmetrically aerated without evidence of mas s, infiltrate or effusion. The cardiomediastinal contours are unremarkable. Osseous structures are intact. CONCLUSION: 1. No acute cardiopulmonary disease. Jak Peng MD on September 09, 2017 at 15:23 Board Certified Radiologist. This report was verified electronically.
[2017-09-09 16:18] LABS: AUTOMATED NEUTROPHIL # 2.8 TH/MM3 (1.8-7.7); BASOPHIL % 0.5 % (0.0-2.0); EOSINOPHIL # 0.1 TH/MM3 (0-0.4); EOSINOPHIL % 2.3 % (0.0-4.0); HEMATOCRIT 40.6 % (39.0-51.0); HEMOGLOBIN 14.4 GM/DL (13.0-17.0); LYMPH % 38.7 % (9.0-44.0); LYMPHOCYTE # 2.1 TH/MM3 (1.0-4.8); MEAN CELL VOLUME 90.1 FL (80.0-100.0); MEAN CORPUSCULAR HEMOGLOBIN 31.9 PG (27.0-34.0); MEAN CORPUSCULAR HGB CONC 35.4 % (32.0-36.0); MEAN PLATELET VOLUME 6.9 FL (7.0-11.0); MONO % 7.4 % (0.0-8.0); MONOCYTE # 0.4 TH/MM3 (0-0.9); NEUT % 51.1 % (16.0-70.0); PLATELET COUNT 326 TH/MM3 (150-450); RED CELL DISTRIBUTION WIDTH 13.5 % (11.6-17.2); WHITE BLOOD COUNT 5.5 TH/MM3 (4.0-11.0)
[2017-09-09 22:40] VITALS: BP 132/74; PULSE 89; RESP 18; TEMP 98.3; O2SAT 99
[2017-09-10 06:12] VITALS: BP 135/72; PULSE 63; RESP 18; O2SAT 98
--- NOTE | 2017-09-10 08:42 | PD ---
History of Present Illness Chief Complaint: Psychiatric Symptoms Time Seen by Provider: 08:30 Travel History International Travel<30 Days: No Contact w/Intl Traveler<30days: No Known affected area: No Legal Status Legal Status: Pagan Act Pagan Act Signed By: Rosalino Mena Pagan Act Comment: 2017 @ 0013 History of Present Illness: 62-year-old male presents under a Pagan act for making suicidal statements. Patient denies actually being suicidal and states he has no suicidal or homicidal ideation, plan or intent this morning. He is calm and pleasant and has no psychotic symptoms. His cognition is baseline although he does have a history of brain injury. He is positive for multiple substances and was recently hospitalized in [place]. He is verbally emily for safety and is competent to do so. He is treated at [facility]. He has a home and wishes to return home. PFSH Past Medical History Asthma: No Blood Disorders: No Bipolar Disorder: Yes Anxiety: Yes Depression: Yes Heart Rhythm Problems: No Cancer: No Cardiac Catheterization: Yes (OCTOBER 2010) Cardiovascular Problems: Yes ([place] 2 YEARS AGO) High Cholesterol: Yes Chemotherapy: No Chest Pain: Yes ([place] 2008) Congestive Heart Failure: No COPD: No Cerebrovascular Accident: Yes Diabetes: No Diminished Hearing: Yes (L EAR HEARING AID) Endocrine: No Gastrointestinal Disorders: Yes (COLITIS; GASTROPARESIS) Genitourinary: No Hepatitis: No Hiatal Hernia: No Heparin Induced Thrombocytopen: No Hypertension: Yes Immune Disorder: No Implanted Vascular Access Dvce: No Musculoskeletal: Yes (LOW BACK PAIN ) Neurologic: Yes (EPILEPSY , TRAUMATIC BRAIN INJURY ) Psychiatric: Yes (ANXIETY, DEPRESSION, PTSD) Reproductive: No Respiratory: Yes Myocardial Infarction: Yes (PER PT HAD SD IN [facility], REFUSED CARDIAC CATH) Schizophrenia: Yes Seizures: Yes Sleep Apnea: Yes (wears cpap) Thyroid Disease: Yes PNEUMOCCOCAL Vaccine (Year): 3 ?: Not Past Surgical History Abdominal Surgery: No AICD: No Body Medical Devices: NONE Cardiac Surgery: No Coronary Artery Bypass Graft: No Ear Surgery: No Eye Surgery: No Genitourinary Surgery: No Joint Replacement: No Oral Surgery: No Pacemaker: No Thoracic Surgery: No Other Surgery: Yes (SHOULDER RIGHT, LEFT WRIST) Psychiatric History Psychiatric History Hx Psychiatric Treatment: DEPRESSION W SUIDICAL IDEATION History of Inpatient Treatment: Yes Guns or firearms in home: No Social History Hx Alcohol Use: Yes (1 OR 2 A MONTH) Hx Tobacco Use: Yes (1 PPD) Hx Substance Use: Yes (MARIJUANA) Substance Use Type: Crack, Cocaine Other Substances Used: NONE Hx of Substance Use Treatment: Yes Allergies-Medications (Allergen,Severity, Reaction): Coded Allergies: acetaminophen (Unverified Allergy, Severe, 09/09/17) UNABLE TO CONFIRM chicken derived (Unverified Allergy, Severe, Rash, 09/09/17) diphenhydramine (Unverified Allergy, Severe, 09/09/17) RASH fish oil (Unverified Allergy, Severe, 09/09/17) UNABLE TO CONFIRM ibuprofen (Unverified Allergy, Severe, Rash, 09/09/17) latex (Unverified Allergy, Severe, Hives, 09/09/17) morphine (Unverified Allergy, Severe, RASH, 09/09/17) ITCHING AT IV SITE; LARGE REDDENED SCABS adhesive (Unverified Allergy, Unknown, 09/09/17) Reported Meds & Prescriptions Reported Meds & Active Scripts Active Calcium 500 +D (Calcium Carbonate-Cholecalciferol) 500-400 Mg-Unit Tab 1 Tab PO DAILY Potassium Chloride ER (Potassium Chloride) 20 Meq Tab 20 Meq PO DAILY Reported Ketorolac Opth Drops 0.5% Drops 1 Drop EACH EYE Zyprexa (Olanzapine) 5 Mg Tab 5 Mg PO HS Propranolol (Propranolol HCl) 60 Mg Tab 60 Mg PO DAILY PRN Levsin (Hyoscyamine Sulfate) 0.125 Mg Tab 0.125 Mg PO Q4H Depakote ER (Divalproex Sodium) 500 Mg Catrina 500 Mg PO BID Nexium (Esomeprazole DR) 20 Mg Capdr 20 Mg PO DAILY Review of Systems Except as stated in HPI: all other systems reviewed are Neg Mental Status Examination Appearance: Appropriate Consciousness: Alert Orientation: x4 Motor Activity: Normal gait Speech: Unremarkable Language: Adequate Fund of Knowledge: Adequate Attention and Concentration: Adequate Memory: Unremarkable Mood: Appropriate Affect: Appropriate Thought Process & Associations: Intact Thought Content: Appropriate Hallucination Type: None Delusion Type: None Suicidal Ideation: No Suicidal Plan: No Suicidal Intention: No Homicidal Ideation: No Homicidal Plan: No Homicidal Intention: No Insight: Adequate Judgment: Adequate MDM Medical Decision Making Medical Record Reviewed: Yes Assessment/Plan Patient interviewed at bedside. Electronic record reviewed, including a positive toxicology screen for multiple substances. Case discussed with nurse Santa. Patient does not meet Pagan act criteria or criteria for involuntary hospitalization at this time. Orders Orders Complete Blood Count With Diff (09/09/17 12:23) Comprehensive Metabolic Panel (09/09/17 12:23) Urinalysis - C+S If Indicated (09/09/17 12:23) Psych Screen (09/09/17 12:23) Drug Screen, Random Urine (09/09/17 12:23) Chest, Single Ap (09/09/17 ) Spine, Lumbar - Ltd (Ap & Lat) (09/09/17 ) Potassium Chloride (Kcl) (09/09/17 14:30) Diet Regular Basic (09/10/17 Breakfast) Results Vital Signs Date Time Temp Pulse Resp B/P (MAP) Pulse Ox O2 Delivery O2 Flow Rate FiO2 09/10/17 06:12 63 18 135/72 (93) 98 Room Air 09/09/17 22:40 98.3 89 18 132/74 (93) 99 Room Air 09/09/17 12:32 97.9 98 18 148/78 (101) 99 Laboratory Tests Test 09/09/17 12:29 09/09/17 15:38 Urine Color YELLOW Urine Turbidity CLEAR Urine pH 6.0 Urine Specific [place] 1.018 Urine Protein TRACE Urine Glucose (UA) NEG Urine Ketones 10 Urine Occult Blood NEG Urine Nitrite NEG Urine Bilirubin NEG Urine Urobilinogen 2.0 Urine Leukocyte Esterase NEG Urine RBC 2 Urine WBC 1 Urine Hyaline Casts 2 Urine Mucus MANY Microscopic Urinalysis Comment CULT NOT INDICATED Blood Urea Nitrogen 8 Creatinine 1.04 Random Glucose 117 Total Protein 7.6 Albumin 3.9 Calcium Level 9.2 Alkaline Phosphatase 78 Aspartate Amino Transf (AST/SGOT) 46 Alanine Aminotransferase (ALT/SGPT) 36 Total Bilirubin 0.9 Sodium Level 139 Potassium Level 3.2 Chloride Level 102 Carbon Dioxide Level 28.6 Anion Gap 8 Estimat Glomerular Filtration Rate 72 Urine Opiates Screen NEG Urine Barbiturates Screen NEG Urine Amphetamines Screen NEG Urine Benzodiazepines Screen POS Urine Cocaine Screen POS Urine Cannabinoids Screen POS White Blood Count 5.5 Red Blood Count 4.50 Hemoglobin 14.4 Hematocrit 40.6 Mean Corpuscular Volume 90.1 Mean Corpuscular Hemoglobin 31.9 Mean Corpuscular Hemoglobin Concent 35.4 Red Cell Distribution Width 13.5 Platelet Count 326 Mean Platelet Volume 6.9 Neutrophils (%) (Auto) 51.1 Lymphocytes (%) (Auto) 38.7 Monocytes (%) (Auto) 7.4 Eosinophils (%) (Auto) 2.3 Basophils (%) (Auto) 0.5 Neutrophils # (Auto) 2.8 Lymphocytes # (Auto) 2.1 Monocytes # (Auto) 0.4 Eosinophils # (Auto) 0.1 Basophils # (Auto) 0.0 CBC Comment DIFF FINAL Differential Comment Diagnosis Primary Impression: Polysubstance abuse Gerber Calvo MD Sep 10, 2017 08:42
--- NOTE | 2017-09-10 09:02 | PD ---
Physical Exam Time Seen by Provider: 09:[address] Calvo has evaluated the patient, lifted the patient and cleared the patient for discharge. Data Data Last Documented VS Vital Signs Date Time Temp Pulse Resp B/P (MAP) Pulse Ox O2 Delivery O2 Flow Rate FiO2 09/10/17 06:12 63 18 135/72 (93) 98 Room Air 09/09/17 22:40 98.3 Orders Orders Complete Blood Count With Diff (09/09/17 12:23) Comprehensive Metabolic Panel (09/09/17 12:23) Urinalysis - C+S If Indicated (09/09/17 12:23) Psych Screen (09/09/17 12:23) Drug Screen, Random Urine (09/09/17 12:23) Chest, Single Ap (09/09/17 ) Spine, Lumbar - Ltd (Ap & Lat) (09/09/17 ) Potassium Chloride (Kcl) (09/09/17 14:30) Diet Regular Basic (09/10/17 Breakfast) Labs Laboratory Tests Test 09/09/17 12:29 09/09/17 15:38 Urine Color YELLOW Urine Turbidity CLEAR Urine pH 6.0 Urine Specific [place] 1.018 Urine Protein TRACE mg/dL Urine Glucose (UA) NEG mg/dL Urine Ketones 10 mg/dL Urine Occult Blood NEG Urine Nitrite NEG Urine Bilirubin NEG Urine Urobilinogen 2.0 MG/DL Urine Leukocyte Esterase NEG Urine RBC 2 /hpf Urine WBC 1 /hpf Urine Hyaline Casts 2 /lpf Urine Mucus MANY /lpf Microscopic Urinalysis Comment CULT NOT INDICATED Blood Urea Nitrogen 8 MG/DL Creatinine 1.04 MG/DL Random Glucose 117 MG/DL Total Protein 7.6 GM/DL Albumin 3.9 GM/DL Calcium Level 9.2 MG/DL Alkaline Phosphatase 78 U/L Aspartate Amino Transf (AST/SGOT) 46 U/L Alanine Aminotransferase (ALT/SGPT) 36 U/L Total Bilirubin 0.9 MG/DL Sodium Level 139 MEQ/L Potassium Level 3.2 MEQ/L Chloride Level 102 MEQ/L Carbon Dioxide Level 28.6 MEQ/L Anion Gap 8 MEQ/L Estimat Glomerular Filtration Rate 72 ML/MIN Urine Opiates Screen NEG Urine Barbiturates Screen NEG Urine Amphetamines Screen NEG Urine Benzodiazepines Screen POS Urine Cocaine Screen POS Urine Cannabinoids Screen POS White Blood Count 5.5 TH/MM3 Red Blood Count 4.50 MIL/MM3 Hemoglobin 14.4 GM/DL Hematocrit 40.6 % Mean Corpuscular Volume 90.1 FL Mean Corpuscular Hemoglobin 31.9 PG Mean Corpuscular Hemoglobin Concent 35.4 % Red Cell Distribution Width 13.5 % Platelet Count 326 TH/MM3 Mean Platelet Volume 6.9 FL Neutrophils (%) (Auto) 51.1 % Lymphocytes (%) (Auto) 38.7 % Monocytes (%) (Auto) 7.4 % Eosinophils (%) (Auto) 2.3 % Basophils (%) (Auto) 0.5 % Neutrophils # (Auto) 2.8 TH/MM3 Lymphocytes # (Auto) 2.1 TH/MM3 Monocytes # (Auto) 0.4 TH/MM3 Eosinophils # (Auto) 0.1 TH/MM3 Basophils # (Auto) 0.0 TH/MM3 CBC Comment DIFF FINAL Differential Comment MDM Supervised Visit with RACHEL: No Narrative Course Dr. Calvo has evaluated the patient, lifted the patient and cleared the patient for discharge. Patient contracts safety. Denies suicidal or homicidal ideations. Patient will be provided community resource packet to /ERIC for follow-up. Has friends and family for support. Patient was medically cleared by alternate provider prior to psych screening. Patient has been evaluated by psychiatry and and is now cleared for discharge. Diagnosis Primary Impression: Polysubstance abuse Referrals: ERIC (Out patient) [facility] Primary Care Physician Psychiatrist Neptali REYES [facility] Patient Instructions: General Instructions, Polysubstance Abuse (ED) Additional Instruction: Contract safety to your self and others Stop using drugs Follow-up with psychiatry Follow-up with primary care provider Follow-up with Trell Sanchez Return to the emergency department immediately with worsening of symptoms Med/Other Pt SpecificInfo: No Change to Meds, No Meds Exist/No RX given Disposition: 01 DISCHARGE HOME Condition: Stable Adia Rahman Sep 10, 2017 09:02
== END 2017-09-10 11:09 | disposition home or self-care (01) ==
LOC: NEDAMB 12:19 → NEPJ 09-10 11:09
DX: F19.10 Other psychoactive substance abuse, uncomplicated (principal); M54.5 Low back pain; I10 Essential (primary) hypertension; F20.9 Schizophrenia, unspecified; F17.200 Nicotine dependence, unspecified, uncomplicated
CPT/HCPCS: 71045; 72100; 80053; 80307; 81001; 85025; 99284

== ENCOUNTER 2018-06-27 12:00 | Observation (INO) ==
[2018-06-27 12:36] LABS: Baso % (Auto) 0.5 % (0.0-2.0); Eos # (Auto) 0.1 th/mm3 (0.0-0.4); Eos % (Auto) 1.8 % (0.0-4.0); Hematocrit 42.6 % (39.0-51.0); Hemoglobin 14.4 gm/dL (13.0-17.0); Lymph % (Auto) 31.7 % (9.0-44.0); Mean Corpuscular HGB Conc 33.7 % (32.0-36.0); Mean Corpuscular Hemoglobin 30.3 pg (27.0-34.0); Mean Corpuscular Volume 89.8 fL (80.0-100.0); Mean Platelet Volume 7.6 fL (7.0-11.0); Mono # (Auto) 0.4 th/mm3 (0.0-0.9); Mono % (Auto) 5.7 % (0.0-8.0); Neut # (Auto) 3.8 th/mm3 (1.8-7.7); Neut % (Auto) 60.3 % (16.0-70.0); Platelet Count 264 th/mm3 (150-450); Red Blood Count 4.74 mil/mm3 (4.50-5.90); Red Cell Distribution Width 13.2 % (11.6-17.2); White Blood Count 6.3 th/mm3 (4.0-11.0)
[2018-06-27 12:49] LABS: Chloride 110 meq/L (98-107); Potassium 3.7 meq/L (3.5-5.1); Sodium 140 meq/L (136-145)
[2018-06-27 12:52] LABS: Calcium 8.7 mg/dL (8.5-10.1)
[2018-06-27 12:53] LABS: Albumin 3.7 g/dL (3.4-5.0); Anion Gap 8 meq/L (5-15); Blood Urea Nitrogen 11 mg/dL (7-18); Carbon Dioxide 21.9 meq/L (21.0-32.0); Glucose,Random 103 mg/dL (74-106)
[2018-06-27 12:56] LABS: Alanine Aminotransferase 37 U/L (12-78); Aspartate Aminotransferase 27 U/L (15-37); Glomerular Filtration Rate Greater Than 89 mL/min (>89)
[2018-06-27 12:57] LABS: Total Protein 7.3 g/dL (6.4-8.2)
[2018-06-27 12:59] LABS: Alkaline Phosphatase 78 U/L (45-117)
--- NOTE | 2018-06-27 12:59 | XR ---
EXAM DATE: 06/27/2018 12:57 PM EST AGE/SEX: 62 years / Male INDICATIONS: Chest pain. CLINICAL DATA: This is the patient's initial encounter. Patient reports that signs and symptoms have been present for 1 day and indicates a pain score of 2/10. MEDICAL/SURGICAL HISTORY: None. None. COMPARISON: [facility], CHEST SINGLE AP, 09/09/2017. . FINDINGS: A single AP view of the chest demonstrates the lungs to be symmetrically aerated without evidence of mass, infiltrate or effusion. The cardiomediastinal contours are unremarkable. Osseous structures a re intact. CONCLUSION: 1. No acute cardiopulmonary disease. Electronically signed by: Jak Peng MD 06/27/2018 12:58 PM EST
[2018-06-27] MEDS ORDERED: HYDROmorphone PF Inj 2 MG/ML Vial IV.PUSH ONE (13:22)
[2018-06-27] MEDS ORDERED: Heparin 10,000 UNITS/10 ML Vial (for IV use) IV.PUSH STA (13:24)
[2018-06-27] MEDS ORDERED: Heparin Drip 25,000 UNIT/250 ML BAG IV.CONT PRN (13:36)
--- NOTE | 2018-06-27 13:53 | ED ---
HPI General Chief Complaint: Chest Pain Stated Complaint: chest pain x 2 days Time Seen by Provider: 06/27/18 12:17 Source: patient Mode of arrival: ambulatory Limitations: no limitations History of Present Illness HPI narrative: Patient presents with history intermittent chest pain for 3 days. Pressure is substernal with radiation to left shoulder. Patient has had intermittent pain with episodes lasting approximately 10 minutes with resolution with recurrence 6-7 times per day. Patient [place] the pain is increased in severity. Patient had substernal pressure radiating to the left shoulder lasting for 1/2 hours prior to arrival. Patient takes nitroglycerin but did not take nitroglycerin for any of these episodes or prior to arrival. Patient had diaphoresis and has chronic shortness of breath and is on oxygen 2 L/h. Related Data Home Medications Medication Instructions Recorded Confirmed amlodipine 5 mg PO HS 06/27/18 06/27/18 atorvastatin 80 mg PO DAILY 06/27/18 06/27/18 diazepam [Valium] 5 mg PO BID 06/27/18 06/27/18 divalproex [Depakote ER] 500 mg PO BID 06/27/18 06/27/18 duloxetine [Cymbalta] 60 mg PO DAILY 06/27/18 06/27/18 famotidine [Pepcid] 40 mg PO DAILY 06/27/18 06/27/18 hydrocodone-acetaminophen [[place]] 1 tab PO TID 06/27/18 06/27/18 levothyroxine [Synthroid] 100 mcg PO DAILY 06/27/18 06/27/18 quetiapine [Seroquel] 200 mg PO HS 06/27/18 06/27/18 topiramate [Topamax] 200 mg PO BID 06/27/18 06/27/18 Allergies Allergy/AdvReac Type Severity Reaction Status Date / Time diphenhydramine Allergy Severe NONE Verified 06/27/18 14:09 latex Allergy Severe Hives Verified 06/27/18 14:09 adhesive Allergy Unknown Rash Verified 06/27/18 14:09 Review of Systems ROS: all other systems reviewed are negative [facility] Medical History Medical History History of anxiety (Acute) History of blood clots (Acute) History of epilepsy (Acute) History of high cholesterol (Acute) History of hypertension (Acute) History of myocardial infarction (Acute) Surgical History Surgical History History of back surgery (Acute) History of neck surgery (Acute) History of shoulder surgery (Acute) Family History Family History Mother Family history of diabetes mellitus Family history of heart disease Social History Social History Substance History: No History of Abuse Second Hand Smoke Exposure: Yes Smoking Status: Light tobacco smoker Tobacco Type: Cigars (Patient states that his most proximal and 1 cigar daily) Number of Pack-Years (if former smoker): 35 (Patient states that he quit smoking cigarettes 6 months ago) How Often Do You Have a Drink Containing Alcohol: Never Recent Travel in [facility] within the Last 8 Weeks: No Recent Out of Country Travel within the Last 8 Weeks: No Immunization History Tetanus Immunization: <5 Years Exam Narrative Exam Narrative: GENERAL: Alert and oriented SKIN: Focused skin assessment warm/dry. HEAD: Atraumatic. Normocephalic. EYES: Pupils equal and round. No scleral icterus. No injection or drainage. ENT: No nasal bleeding or discharge. Mucous membranes pink and moist. NECK: Trachea midline. No JVD. CARDIOVASCULAR: Regular rate and rhythm. No murmur appreciated. RESPIRATORY: No accessory muscle use. Clear to auscultation. Breath sounds equal bilaterally. Generalized decreased breath sounds GASTROINTESTINAL: Abdomen soft, non-tender, nondistended. Hepatic and splenic margins not palpable. MUSCULOSKELETAL: No obvious deformities. No clubbing. No cyanosis. No edema. NEUROLOGICAL: Awake and alert. No obvious cranial nerve deficits. Motor grossly within normal limits. Normal speech. PSYCHIATRIC: Appropriate mood and affect; insight and judgment normal. Course Reevaluation(s) Reevaluation #1: Patient had aspirin and #3 nitroglycerin with no relief. Patient has no significant changes on EKG when compared to previous. Troponin is within normal limits. Time: 13:50 Reevaluation #2: Patient discussed with Dr. Zhao who stated patient needs to be admitted to intermediate cardiac care patient discussed and transferred to the main Time: 14:22 Initial Documented Vital Signs Temperature 97.5 F L 06/27/18 12:05 Pulse Rate 68 06/27/18 12:05 Respiratory Rate 16 06/27/18 12:05 Blood Pressure 150/96 H 06/27/18 12:05 Pulse Oximetry 97 06/27/18 12:05 Last Documented Vital Signs Temperature 97.6 F 06/27/18 20:00 Pulse Rate 70 06/27/18 20:00 Respiratory Rate 16 06/27/18 20:00 Blood Pressure 130/77 06/27/18 20:00 Pulse Oximetry 98 06/27/18 20:00 Critical Care Time Critical Care Time: Yes Total Critical Care Time: 60 Attestation: NA Medical Decision Making MDM Narrative Medical decision making narrative: Case discussed with construction project administrator Dr. Dash and patient being transferred to [place] with call to cardiology. Also got discussed with Dr. Zhao who states patient needs to be transferred to the [facility] but to see SUE Medical Screen Exam Complete: Yes Emergency Medical Condition: Yes Lab Data Result diagrams: 06/27/18 12:26 06/27/18 12:26 Lab Results 06/27/18 06/27/18 06/27/18 Range/Units 12:26 12:26 12:26 CBC w Diff Auto diff final WBC 6.3 (4.0-11.0) th/mm3 RBC 4.74 (4.50-5.90) mil/mm3 Hgb 14.4 (13.0-17.0) gm/dL Hct 42.6 (39.0-51.0) % MCV 89.8 (80.0-100.0) fL MCH 30.3 (27.0-34.0) pg MCHC 33.7 (32.0-36.0) % RDW 13.2 (11.6-17.2) % Plt Count 264 (150-450) th/mm3 MPV 7.6 (7.0-11.0) fL Neut % (Auto) 60.3 (16.0-70.0) % Lymph % (Auto) 31.7 (9.0-44.0) % [place] % (Auto) 5.7 (0.0-8.0) % Eos % (Auto) 1.8 (0.0-4.0) % Baso % (Auto) 0.5 (0.0-2.0) % Neut # (Auto) 3.8 (1.8-7.7) th/mm3 Lymph # (Auto) 2.0 (1.0-4.8) th/mm3 [place] # (Auto) 0.4 (0.0-0.9) th/mm3 Eos # (Auto) 0.1 (0.0-0.4) th/mm3 Baso # (Auto) 0.0 (0.0-0.2) th/mm3 WBC Differential . Differential Comment . PT (9.8-11.6) sec INR Ratio APTT (23.4-31.7) sec Sodium 140 (136-145) meq/L Potassium 3.7 (3.5-5.1) meq/L Chloride 110 H (98-107) meq/L Carbon Dioxide 21.9 (21.0-32.0) meq/L Anion Gap 8 (5-15) meq/L BUN 11 (7-18) mg/dL Creatinine 0.73 (0.60-1.30) mg/dL Estimated GFR Greater than 89 (>89) mL/min Random Glucose 103 (74-106) mg/dL Calcium 8.7 (8.5-10.1) mg/dL Total Bilirubin 0.4 (0.2-1.0) mg/dL AST 27 (15-37) U/L ALT 37 (12-78) U/L Alkaline Phosphatase 78 (45-117) U/L Troponin I Less than 0.02 L (0.02-0.05) ng/mL B-Natriuretic Peptide 12 (0-100) pg/mL Total Protein 7.3 (6.4-8.2) g/dL Albumin 3.7 (3.4-5.0) g/dL 06/27/18 Range/Units 14:30 CBC w Diff WBC (4.0-11.0) th/mm3 RBC (4.50-5.90) mil/mm3 Hgb (13.0-17.0) gm/dL Hct (39.0-51.0) % MCV (80.0-100.0) fL MCH (27.0-34.0) pg MCHC (32.0-36.0) % RDW (11.6-17.2) % Plt Count (150-450) th/mm3 MPV (7.0-11.0) fL Neut % (Auto) (16.0-70.0) % Lymph % (Auto) (9.0-44.0) % [place] % (Auto) (0.0-8.0) % Eos % (Auto) (0.0-4.0) % Baso % (Auto) (0.0-2.0) % Neut # (Auto) (1.8-7.7) th/mm3 Lymph # (Auto) (1.0-4.8) th/mm3 [place] # (Auto) (0.0-0.9) th/mm3 Eos # (Auto) (0.0-0.4) th/mm3 Baso # (Auto) (0.0-0.2) th/mm3 WBC Differential Differential Comment PT 13.0 H (9.8-11.6) sec INR 1.3 Ratio APTT 31.5 (23.4-31.7) sec Sodium (136-145) meq/L Potassium (3.5-5.1) meq/L Chloride (98-107) meq/L Carbon Dioxide (21.0-32.0) meq/L Anion Gap (5-15) meq/L BUN (7-18) mg/dL Creatinine (0.60-1.30) mg/dL Estimated GFR (>89) mL/min Random Glucose (74-106) mg/dL Calcium (8.5-10.1) mg/dL Total Bilirubin (0.2-1.0) mg/dL AST (15-37) U/L ALT (12-78) U/L Alkaline Phosphatase (45-117) U/L Troponin I (0.02-0.05) ng/mL B-Natriuretic Peptide (0-100) pg/mL Total Protein (6.4-8.2) g/dL Albumin (3.4-5.0) g/dL Imaging Data Radiologist's impression: Chest X-Ray 06/27/18 12:17 CONCLUSION: 1. No acute cardiopulmonary disease. Discharge Plan Discharge Disposition Patient Disposition: Transfer To [facility] Physicians Team ED Provider: Reinier Young Primary Care Provider: Primary Care Cyn Andrade Attending Provider: Elmo Chen Other Providers: Tyler Pierson ED Status: Left Department Discharge Information Discharge Date/Time: 06/27/18 17:08
[2018-06-27 15:18] LABS: Activated Partial Thrombo Time 31.5 sec (23.4-31.7); INR 1.3 Ratio
--- NOTE | 2018-06-27 15:23 | P.HP ---
History of Present Illness Primary Care Physician: No Primary Care Physician Chief Complaint: Chest pain History of Present Illness: 62-year-old male with known history of organic brain disease, hypertension, hyper lipidemia, coronary artery disease, myocardial infarction, seizures who presented to hospital because of chest pain. Patient states that over the last 3 days has been experiencing intermittent chest discomfort located in the middle part of his chest radiating into the left anterior chest left arm with associated shortness of breath, diaphoresis that lasts for a couple minutes at a time and then resolves on its own. The pain can happen during rest and exertion. Patient states the pain has woke him up while he was sleeping throughout the night. The patient indicates that this is same type of pain he is experiencing when he had his first heart attack. This made the patient concerned. The patient states that he was across the street and he called the ER and told them of his symptoms so they recommended him to come to the hospital for evaluation. When the patient presented the emergency department he was having the chest pain and was given nitroglycerin with resolution of his pain. However, the pain continued to come back, the patient was given Dilaudid for pain control without any significant improvement. Patient states that the pain is only relieved with nitroglycerin. The ER physician recommended the patient be admitted for further evaluation and management. He did contact the [facility] administrator who recommended that the patient be in intermediate care, placed on heparin drip and admitted to [facility]. - Diagnosis (1) Chest pain Inpatient Certification: I certify that the inpatient services were ordered in accordance with Medicare regulations governing the order. This includes certification that hospital inpatient services are reasonable and necessary and in the case of services not specified as inpatient-only under 42 CFR 419.22(n), that they are appropriately provided as inpatient services in accordance to with the 2-midnight benchmark under 43 CFR 412.3(e) Review of Systems All other systems reviewed negative except as stated in HPI Constitutional: Reports excessive sweating Cardiovascular: Reports chest pain, Reports radiating jaw, neck or arm pain, Reports shortness of breath PMFSH - History History Provided By: Patient - Medical History Medical History: Medical History (Last Reviewed 06/27/18 @ 13:49 by Reinier Young MD) History of anxiety History of blood clots History of epilepsy History of high cholesterol History of hypertension History of myocardial infarction - Surgical History Surgical History: Surgical History (Last Reviewed 06/27/18 @ 13:49 by Reinier Young MD) History of back surgery History of neck surgery History of shoulder surgery - Family History Family History: Family History (Last Updated 06/27/18 @ 15:17 by CHRISTINA Au) Mother Family history of diabetes mellitus Family history of heart disease - Tobacco History Second Hand Smoke Exposure: Yes Tobacco Use In Past 30 Days: Yes Smoking Status: Light tobacco smoker Tobacco Type: Cigars (Patient states that his most proximal and 1 cigar daily) Number of Pack Years (if former smoker): 35 (Patient states that he quit smoking cigarettes 6 months ago) - Alcohol History How Often Do You Have a Drink Containing Alcohol: Never - Substance Use History Substance History: No History of Abuse - Travel History Recent Travel in the [place] Within the Last 8 Weeks: No Recent Travel Out of the Country Within the Last 8 Weeks: No - Immunization History Tetanus Immunization: <5 Years Medications and Allergies Active Medications: Active Medications Aspirin (Aspirin) 325 mg PO DAILY [facility] Atorvastatin Calcium (Lipitor) 80 mg PO DAILY [facility] Carvedilol (Coreg) 3.125 mg PO BID [facility] Duloxetine HCl (Cymbalta) 60 mg PO DAILY [facility] Heparin Sodium/Dextrose (Heparin/D5w 25,000 U/250 Ml) 25,000 unit in 250 mls @ 0 mls/hr IV.CONT TITRATE PRN; Protocol PRN Reason: Per Protocol Nitroglycerin (Nitro-Bid 2% Oint) 0.5 inch TOPICAL Q6HR [facility] Non-Formulary Medication (Famotidine [Pepcid]) 40 mg PO DAILY [facility] Sodium Chloride (Ns Flush) 2 ml IV.FLUSH UNSCH PRN PRN Reason: FLUSH AFTER USING IV ACCESS Sodium Chloride (Ns Flush) 2 ml IV.FLUSH BID BRAYAN Sodium Chloride (Ns Flush) 2 ml IV.FLUSH PRN PRN PRN Reason: FLUSH AFTER USING IV ACCESS Allergies Allergy/AdvReac Type Severity Reaction Status Date / Time acetaminophen Allergy Severe NONE Verified 06/27/18 14:09 chicken derived Allergy Severe Rash Verified 06/27/18 14:09 diphenhydramine Allergy Severe NONE Verified 06/27/18 14:09 fish oil Allergy Severe NONE Verified 06/27/18 14:09 ibuprofen Allergy Severe Rash Verified 06/27/18 14:09 latex Allergy Severe Hives Verified 06/27/18 14:09 morphine Allergy Severe NONE Verified 06/27/18 14:09 adhesive Allergy Unknown Rash Verified 06/27/18 14:09 Home Medications Medication Instructions Recorded Confirmed Type amlodipine 5 mg PO HS 06/27/18 06/27/18 History atorvastatin 80 mg PO DAILY 06/27/18 06/27/18 History diazepam [Valium] 5 mg PO BID 06/27/18 06/27/18 History divalproex [Depakote ER] 500 mg PO BID 06/27/18 06/27/18 History duloxetine [Cymbalta] 60 mg PO DAILY 06/27/18 06/27/18 History famotidine [Pepcid] 40 mg PO DAILY 06/27/18 06/27/18 History hydrocodone-acetaminophen [[place]] 1 tab PO TID 06/27/18 06/27/18 History levothyroxine [Synthroid] 100 mcg PO DAILY 06/27/18 06/27/18 History quetiapine [Seroquel] 200 mg PO HS 06/27/18 06/27/18 History topiramate [Topamax] 200 mg PO BID 06/27/18 06/27/18 History Exam Vital signs: Vital Signs 06/27/18 12:05 06/27/18 12:17 06/27/18 12:47 Temperature 97.5 F L Pulse Rate 68 65 Respiratory Rate 16 16 Blood Pressure 150/96 H 131/84 Pulse Oximetry 97 97 99 06/27/18 12:57 06/27/18 13:07 06/27/18 13:14 Temperature Pulse Rate 67 73 71 Respiratory Rate 16 16 16 Blood Pressure 111/62 122/72 95/72 L Pulse Oximetry 98 98 97 Intake & Output 06/26/18 06/27/18 06/27/18 18:59 06:59 18:59 Weight 87 kg Narrative: GENERAL: Well-developed, well-nourished, in no acute distress. alert and orientated HEENT: Head is normocephalic without any lesions or masses noted. Facial features are symmetric. Eyes: Pupils equal round reactive to light. Extraocular muscles are intact. Conjunctivae were clear. Oropharyngeal: Pharynx without any erythema edema. Tongue is midline without deviation. Buccal mucosa is moist without any masses or lesions. Dentition in poor repair NECK: Supple without any masses. Trachea midline no deviation. No JVD, no bruits are appreciated CARDIAC: Regular rhythm, regular rate. S1/S2 are heard. No murmurs gallops or rubs. LUNGS: Clear to auscultation bilaterally. No wheeze, rhonchi or rales. No use of accessory muscles on inspiration or expiration. ABDOMEN: Soft, nontender. Nondistended. Bowel sounds heard in all 4 quadrants. No organomegaly or masses. Negative rebound, negative guarding EXTREMITIES: No edema, pulses are equal bilaterally. No cyanosis or clubbing NEUROLOGY: Mood and affect appear appropriate. Cranial nerves II through XII grossly intact. Commercial Accountant strength 5/5 in upper extremities bilaterally. Deep tendon reflexes are 2+ in upper and lower extremities bilaterally. Results - Labs CBC & Chem 7: 06/27/18 12:26 06/27/18 12:26 Labs: Laboratory Results - last 24 hr 06/27/18 06/27/18 06/27/18 12:26 12:26 12:26 CBC w Diff Auto diff final WBC 6.3 RBC 4.74 Hgb 14.4 Hct 42.6 MCV 89.8 MCH 30.3 MCHC 33.7 RDW 13.2 Plt Count 264 MPV 7.6 Neut % (Auto) 60.3 Lymph % (Auto) 31.7 [place] % (Auto) 5.7 Eos % (Auto) 1.8 Baso % (Auto) 0.5 Neut # (Auto) 3.8 Lymph # (Auto) 2.0 [place] # (Auto) 0.4 Eos # (Auto) 0.1 Baso # (Auto) 0.0 WBC Differential . Differential Comment . Sodium 140 Potassium 3.7 Chloride 110 H Carbon Dioxide 21.9 Anion Gap 8 BUN 11 Creatinine 0.73 Estimated GFR Greater than 89 Random Glucose 103 Calcium 8.7 Total Bilirubin 0.4 AST 27 ALT 37 Alkaline Phosphatase 78 Troponin I Less than 0.02 L B-Natriuretic Peptide 12 Total Protein 7.3 Albumin 3.7 - Imaging Impressions Chest X-Ray 06/27/18 12:17 CONCLUSION: 1. No acute cardiopulmonary disease. Caprini VTE Risk Assessment Caprini VTE Risk Assessment: Moderate/High Risk (score >= 2) Caprini Risk Assessment Model: Point Value = 1 Point Value = 2 Point Value = 3 Point Value = 5 Age 41-60 Minor surgery BMI > 25 kg/m2 Swollen legs Varicose veins or History of unexplained or recurrent spontaneous Oral contraceptives or hormone replacement Sepsis (< 1 month) Serious lung disease, including pneumonia (< 1 month) Abnormal pulmonary function Acute myocardial infarction Congestive heart failure (< 1 month) History of inflammatory bowel disease Medical patient at bed rest Age 61-74 Arthroscopic surgery Major open surgery (> 45 min) Laparoscopic surgery (> 45 min) Malignancy Confined to bed (> 72 hours) Immobilizing plaster cast Central venous access Age >= 75 History of VTE Family history of VTE Factor V Leiden Prothrombin [id number] Lupus anticoagulant Anticardiolipin antibodies Elevated serum homocysteine Heparin-induced thrombocytopenia Other congenital or acquired thrombophilia Stroke (< 1 month) Elective arthroplasty Hip, pelvis, or leg fracture Acute spinal cord injury (< 1 month) Prophylaxis Regimen: Total Risk Factor Score Risk Level Prophylaxis Regimen 0-1 Low Early ambulation 2 Moderate Order ONE of the following: *Sequential Compression Device (SCD) *Heparin 5000 units SQ BID 3-4 Higher Order ONE of the following medications: *Heparin 5000 units SQ TID *Enoxaparin/Lovenox 40 mg SQ daily (WT < 150 kg, CrCl > 30 mL/min) *Enoxaparin/Lovenox 30 mg SQ daily (WT < 150 kg, CrCl > 10-29 mL/min) *Enoxaparin/Lovenox 30 mg SQ BID (WT < 150 kg, CrCl > 30 mL/min) AND/OR *Sequential Compression Device (SCD) 5 or more Highest Order ONE of the following medications: *Heparin 5000 units SQ TID (Preferred with Epidurals) *Enoxaparin/Lovenox 40 mg SQ daily (WT < 150 kg, CrCl > 30 mL/min) *Enoxaparin/Lovenox 30 mg SQ daily (WT < 150 kg, CrCl > 10-29 mL/min) *Enoxaparin/Lovenox 30 mg SQ BID (WT < 150 kg, CrCl > 30 mL/min) AND *Sequential Compression Device (SCD) Assessment and Plan - Assessment (1) Chest pain Code(s): R07.9 - Chest pain, unspecified Status: Acute - Plan Chest pain, possible acute coronary syndrome -Patient presented with acute/recurrent chest pain which is relieved with nitroglycerin, but returns. Patient states that it is same type of pain he was experiencing when he had his last heart attack -Patient does have increased risk factors include age, male, hypertension, hyperlipidemia, coronary disease, tobacco use, family history of heart disease -Continue to rule the patient out for acute cardiac injury with serial cardiac enzymes and serial EKGs -Initial EKG was reviewed by myself that does show sinus rhythm with frequent PVCs -Patient will be admitted for cardioprotection with aspirin, Nitropaste, start Coreg 3.125 mg twice daily, statin, heparin IV -Inserter Promotional Item will be consulted for further recommendations -Patient admitted with telemetry -Oxygen as needed Hypertension, hyperlipidemia, coronary disease -Home medication continued -Check lipid panel History of brain damage, organic brain disease, seizures -Home medication be continued DVT prevention -Heparin IV -Sequential compression devices
--- NOTE | 2018-06-27 20:37 | P.PNADD ---
Addendum to Inpatient Note Reason for Addendum: Additional Documentation Additional information: [employer] prescription monitoring site queried and verified home prescriptions for [place] and Valium. Last filled at the beginning of June.
[2018-06-27] MEDS ORDERED: Morphine Sulfate Inj 2 MG/ML Vial IV.PUSH ONE (20:45)
[2018-06-27] MEDS: Divalproex 500 MG ER Tablet PO SCH (20:56)
[2018-06-27] MEDS: Topiramate 200 MG Tablet PO SCH (20:59)
[2018-06-27] MEDS ORDERED: diazePAM 5 MG Tablet PO SCH (21:00)
[2018-06-27 22:24] LABS: Creatine Kinase 101 U/L (39-308)
[2018-06-28 03:22] LABS: Baso % (Auto) 0.5 % (0.0-2.0); Eos # (Auto) 0.2 th/mm3 (0.0-0.4); Eos % (Auto) 2.7 % (0.0-4.0); Hematocrit 36.6 % (39.0-51.0); Hemoglobin 13.1 gm/dL (13.0-17.0); Lymph # (Auto) 2.9 th/mm3 (1.0-4.8); Lymph % (Auto) 45.3 % (9.0-44.0); Mean Corpuscular HGB Conc 35.6 % (32.0-36.0); Mean Corpuscular Hemoglobin 31.5 pg (27.0-34.0); Mean Corpuscular Volume 88.5 fL (80.0-100.0); Mean Platelet Volume 7.4 fL (7.0-11.0); Mono # (Auto) 0.5 th/mm3 (0.0-0.9); Mono % (Auto) 7.2 % (0.0-8.0); Neut # (Auto) 2.9 th/mm3 (1.8-7.7); Neut % (Auto) 44.3 % (16.0-70.0); Platelet Count 193 th/mm3 (150-450); Red Blood Count 4.14 mil/mm3 (4.50-5.90); Red Cell Distribution Width 14.1 % (11.6-17.2); White Blood Count 6.5 th/mm3 (4.0-11.0)
[2018-06-28 03:54] LABS: Anion Gap 7 meq/L (5-15); Blood Urea Nitrogen 11 mg/dL (7-18); Calcium 8.7 mg/dL (8.5-10.1); Carbon Dioxide 26.4 meq/L (21.0-32.0); Chloride 107 meq/L (98-107); Cholesterol 107 mg/dL (120-200); Glomerular Filtration Rate Greater Than 89 mL/min (>89); Glucose,Random 108 mg/dL (74-106); Potassium 3.8 meq/L (3.5-5.1); Sodium 140 meq/L (136-145); Triglycerides 68 mg/dL (42-150)
[2018-06-28 03:58] LABS: HDL Cholesterol 56.2 mg/dL (40.0-60.0); LDL Cholesterol,Calculated 37 mg/dL (0-99)
[2018-06-28 04:01] LABS: Creatine Kinase 80 U/L (39-308)
[2018-06-28] MEDS: Levothyroxine 100 MCG Tablet PO SCH (06:22)
[2018-06-28] MEDS: Aspirin 325 MG Tablet PO SCH (08:33)
[2018-06-28] MEDS: Duloxetine 60 MG DR Capsule PO SCH (08:34)
[2018-06-28] MEDS: Divalproex 500 MG ER Tablet PO SCH ×2 (08:34→21:35)
[2018-06-28] MEDS: Famotidine 20 MG Tablet PO SCH (08:35)
[2018-06-28] MEDS: Topiramate 200 MG Tablet PO SCH ×2 (08:35→21:35)
[2018-06-28] MEDS ORDERED: Sod Chloride 0.9% Inj 1,000 ML IV.SIG ONE (10:45)
[2018-06-28] MEDS: Sod Chloride 0.9% Inj 1,000 ML IV.SIG SCH (11:26)
--- NOTE | 2018-06-28 11:40 | P.PN ---
Subjective Interval history: Follow-up for unstable angina. Patient is ambulating in the room. He reports persistent chest discomfort with radiation to his left shoulder. No fever or chills. Physical Exam Vital signs: Vital Signs 06/27/18 12:05 06/27/18 12:17 06/27/18 12:47 Temperature 97.5 F L Pulse Rate 68 65 Respiratory Rate 16 16 Blood Pressure 150/96 H 131/84 Pulse Oximetry 97 97 99 06/27/18 12:57 06/27/18 13:07 06/27/18 13:14 Temperature Pulse Rate 67 73 71 Respiratory Rate 16 16 16 Blood Pressure 111/62 122/72 95/72 L Pulse Oximetry 98 98 97 06/27/18 16:30 06/27/18 20:00 06/27/18 21:00 Temperature 97.6 F Pulse Rate 70 70 80 Respiratory Rate 16 16 Blood Pressure 134/78 130/77 Pulse Oximetry 99 98 06/27/18 21:10 06/27/18 22:00 06/27/18 23:00 Temperature Pulse Rate 74 72 Respiratory Rate Blood Pressure Pulse Oximetry 98 06/28/18 00:00 06/28/18 01:00 06/28/18 02:00 Temperature 97.6 F Pulse Rate 85 90 78 Respiratory Rate 16 Blood Pressure 104/77 Pulse Oximetry 99 06/28/18 03:00 06/28/18 04:00 06/28/18 05:00 Temperature 97.7 F Pulse Rate 77 85 72 Respiratory Rate 16 Blood Pressure 92/51 L Pulse Oximetry 99 06/28/18 06:00 06/28/18 06:27 06/28/18 07:00 Temperature Pulse Rate 71 76 Respiratory Rate 18 Blood Pressure Pulse Oximetry 06/28/18 08:00 06/28/18 08:31 06/28/18 09:00 Temperature Pulse Rate 62 63 Respiratory Rate 18 Blood Pressure Pulse Oximetry 06/28/18 10:00 Temperature Pulse Rate 72 Respiratory Rate Blood Pressure Pulse Oximetry Intake & Output 06/27/18 06/28/18 06/28/18 18:59 06:59 18:59 Intake Total 240 / 240 Balance 240 / 240 Weight 87 kg 63.5 kg Intake: Oral 240 / 240 Other: # Voids 3 Narrative: GENERAL: Alert, NAD. SKIN: Warm and dry. HEAD: Normocephalic. EYES: No scleral icterus. No injection or drainage. NECK: Supple, trachea midline. No JVD or lymphadenopathy. CARDIOVASCULAR: Regular rate and rhythm without murmurs, gallops, or rubs. RESPIRATORY: Moderate air entry, no wheezing noted. No accessory muscle use. GASTROINTESTINAL: Abdomen soft, non-tender, nondistended. MUSCULOSKELETAL: No cyanosis, or edema. BACK: Nontender without obvious deformity. No CVA tenderness. Results - Labs CBC & Chem 7: 06/28/18 03:06 06/28/18 03:06 Laboratory Results - last 24 hr 06/27/18 06/27/18 06/27/18 12:26 12:26 12:26 CBC w Diff Auto diff final WBC 6.3 RBC 4.74 Hgb 14.4 Hct 42.6 MCV 89.8 MCH 30.3 MCHC 33.7 RDW 13.2 Plt Count 264 MPV 7.6 Neut % (Auto) 60.3 Lymph % (Auto) 31.7 Edmonson % (Auto) 5.7 Eos % (Auto) 1.8 Baso % (Auto) 0.5 Neut # (Auto) 3.8 Lymph # (Auto) 2.0 Ed[place]on # (Auto) 0.4 Eos # (Auto) 0.1 Baso # (Auto) 0.0 WBC Differential . Differential Comment . PT INR APTT Sodium 140 Potassium 3.7 Chloride 110 H Carbon Dioxide 21.9 Anion Gap 8 BUN 11 Creatinine 0.73 Estimated GFR Greater than 89 Random Glucose 103 Calcium 8.7 Total Bilirubin 0.4 AST 27 ALT 37 Alkaline Phosphatase 78 Total Creatine Kinase Troponin I Less than 0.02 L B-Natriuretic Peptide 12 Total Protein 7.3 Albumin 3.7 Triglycerides Cholesterol LDL Cholesterol, Calc HDL Cholesterol Cholesterol/HDL Ratio 06/27/18 06/27/18 06/27/18 14:30 21:50 23:11 CBC w Diff WBC RBC Hgb Hct MCV MCH MCHC RDW Plt Count MPV Neut % (Auto) Lymph % (Auto) Edmonson % (Auto) Eos % (Auto) Baso % (Auto) Neut # (Auto) Lymph # (Auto) Edmonson # (Auto) Eos # (Auto) Baso # (Auto) WBC Differential Differential Comment PT 13.0 H INR 1.3 APTT 31.5 Greater than 277.5 H* Sodium Potassium Chloride Carbon Dioxide Anion Gap BUN Creatinine Estimated GFR Random Glucose Calcium Total Bilirubin AST ALT Alkaline Phosphatase Total Creatine Kinase 101 Troponin I Less than 0.02 L B-Natriuretic Peptide Total Protein Albumin Triglycerides Cholesterol LDL Cholesterol, Calc HDL Cholesterol Cholesterol/HDL Ratio 06/28/18 06/28/18 06/28/18 00:38 03:06 03:06 CBC w Diff WBC 6.5 RBC 4.14 L Hgb 13.1 Hct 36.6 L MCV 88.5 MCH 31.5 MCHC 35.6 RDW 14.1 Plt Count 193 MPV 7.4 Neut % (Auto) 44.3 Lymph % (Auto) 45.3 H Edmonson % (Auto) 7.2 Eos % (Auto) 2.7 Baso % (Auto) 0.5 Neut # (Auto) 2.9 Lymph # (Auto) 2.9 Ed[place]on # (Auto) 0.5 Eos # (Auto) 0.2 Baso # (Auto) 0.0 WBC Differential . Differential Comment Auto diff final PT INR APTT 177.4 H* D Sodium 140 Potassium 3.8 Chloride 107 Carbon Dioxide 26.4 Anion Gap 7 BUN 11 Creatinine 0.78 Estimated GFR Greater than 89 Random Glucose 108 H Calcium 8.7 Total Bilirubin AST ALT Alkaline Phosphatase Total Creatine Kinase 80 Troponin I Less than 0.02 L B-Natriuretic Peptide Total Protein Albumin Triglycerides 68 Cholesterol 107 L LDL Cholesterol, Calc 37 HDL Cholesterol 56.2 Cholesterol/HDL Ratio 1.90 06/28/18 03:06 CBC w Diff WBC RBC Hgb Hct MCV MCH MCHC RDW Plt Count MPV Neut % (Auto) Lymph % (Auto) Edmonson % (Auto) Eos % (Auto) Baso % (Auto) Neut # (Auto) Lymph # (Auto) Edmonson # (Auto) Eos # (Auto) Baso # (Auto) WBC Differential Differential Comment PT INR APTT 34.1 H D Sodium Potassium Chloride Carbon Dioxide Anion Gap BUN Creatinine Estimated GFR Random Glucose Calcium Total Bilirubin AST ALT Alkaline Phosphatase Total Creatine Kinase Troponin I B-Natriuretic Peptide Total Protein Albumin Triglycerides Cholesterol LDL Cholesterol, Calc HDL Cholesterol Cholesterol/HDL Ratio - Imaging Impressions Chest X-Ray 06/27/18 12:17 CONCLUSION: 1. No acute cardiopulmonary disease. - Procedures None Assessment and Plan - Assessment (1) Chest pain Code(s): R07.9 - Chest pain, unspecified Status: Acute - Plan Mr. Dorsey is a 62-year-old male with a history of coronary artery disease who presented to the emergency department in [place] on 06/27/2018 due to intermittent chest pain for 3 days prior to this admission. He reports substernal and left-sided chest pain radiating to his left shoulder. He does report some nausea. His chest pain occurs both at rest and on exertion. Patient apparently had cardiac cath before and was offered cardiac stent placement in [place]. However he refused due to his lack of confidence in the medical facility. Unstable angina Currently on aspirin 325 mg p.o. daily, atorvastatin 80 mg p.o. daily, carvedilol 3.125 mg p.o. twice daily. Continue heparin drip. Continue nitroglycerin topical as needed. Cardiology consulted. Patient will likely need cardiac catheterization. Seizure disorder Anxiety Continue duloxetine 60 mg p.o. daily, Seroquel 200 mg p.o. nightly Continue diazepam 5 mg p.o. twice daily, Depakote 500 mg p.o. twice daily. Continue Topamax 200 mg p.o. twice daily Hypotension Blood pressure has been low today around 92/51. Heart rate is in the 60-70s range. We will hold off using carvedilol for now. We will provide 1 L normal saline bolus and then normal saline 100 mL/h. Hypothyroidism GERD Continue levothyroxine 100 mcg p.o. daily and famotidine 40 mg p.o. daily. Full code. Heparin drip.
--- NOTE | 2018-06-28 13:54 | ECG ---
Date Performed: 06/27/2018 Time Performed: 12:05:24 PTAGE: 62 years EKG: Sinus rhythm WITH FREQUENT VENTRICULAR PREMATURE COMPLEXES ABNORMAL RHYTHM ECG Since the PREVIOUS TRACING , no significant change noted PREVIOUS TRACIN07/17/2017 03.14 DOCTOR: Tyler Pierson Interpretating Date/Time 06/28/2018 13:52:34
--- NOTE | 2018-06-28 15:06 | ECHRPT ---
Indication: CHEST PAIN CONCLUSIONS Normal left ventricular size. Wall thickness is normal. The left ventricular systolic function is low normal with an estimated ejection fraction in the rang e of 50- 55%. moderate mitral valve regurgitation. There is moderate tricuspid regurgitation. The estimated pulmonary arterial pressure is 31.5 mmHg. BP: / HR: Rhythm: Sinus MEASUREMENTS (Male / Female) Normal Values Technical Quality:Fair 2D ECHO LV Diastolic Diameter PLAX 4.6 cm 4.2 - 5.9 / 3.9 - 5.3 cm LV Systolic Diameter PLAX 3.6 cm IVS Diastolic Thickness 0.8 cm 0.6 - 1.0 / 0.6 - 0.9 cm LVPW Diastolic Thickness 0.9 cm 0.6 - 1.0 / 0.6 - 0.9 cm LV Relative Wall Thickness 0.4 RV Internal Dim ED PLAX 2.6 cm LVOT Diameter 2.1 cm Aortic Root Diameter 3.0 cm LA Systolic Diameter LX 3.2 cm 3.0 - 4.0 / 2.7 - 3.8 cm M-MODE AV Cusp Separation MM 2.1 cm DOPPLER AV Peak Velocity 92.4 cm/s AV Peak Gradient 3.4 mmHg AV Mean Gradient 2.0 mmHg AV Velocity Time Integral 18.0 cm LVOT Peak Velocity 86.5 cm/s LVOT Peak Gradient 3.0 mmHg LVOT Velocity Time Integral 18.3 cm AV Area Cont Eq vti 3.5 cm AV Area Cont Eq pk 3.2 cm Mitral E Point Velocity 56.3 cm/s Mitral A Point Velocity 54.3 cm/s Mitral E to A Ratio 1.0 LV E' Lateral Velocity 6.7 cm/s Mitral E to LV E' Lateral Ratio 8.4 LV E' Septal Velocity 9.3 cm/s Mitral E to LV E' Septal Ratio 6.1 TR Peak Velocity 232.0 cm/s TR Peak Gradient 21.5 mmHg Right Atrial Pressure 10.0 mmHg Pulmonary Artery Systolic Pressu 31.5 mmHg Right Ventricular Systolic Press 31.5 mmHg PV Peak Velocity 60.9 cm/s PV Peak Gradient 1.5 mmHg FINDINGS LEFT VENTRICLE Normal left ventricular size. Wall thickness is normal. The left ventricular systolic function is low normal with an estimated ejection fraction in the rang e of 50- 55%. RIGHT VENTRICLE Normal right ventricular size and systolic function. LEFT ATRIUM The left atrial size is normal. RIGHT ATRIUM The right atrial size is normal. ATRIAL SEPTUM The interatrial septum not well visualized. AORTA The aortic root and proximal ascending aorta are not well visualized. MITRAL VALVE [id number] mitral valve regurgitation. AORTIC VALVE Trileaflet aortic valve. No aortic valve stenosis or regurgitation. TRICUSPID VALVE There is moderate tricuspid regurgitation. The estimated pulmonary arterial pressure is 31.5 mmHg. PULMONARY VALVE No pulmonary valve regurgitation or stenosis. VESSELS The inferior vena cava is normal in size. PERICARDIUM No pericardial effusion. Tyler Pierson MD, FACC, [facility] (Electronically Signed) Final Date:28 June 2018 15:04
--- NOTE | 2018-06-28 18:22 | MB ---
cc: Tyler Pierson MD DATE: 06/28/2018 HISTORY OF PRESENT ILLNESS: Wilma is a very pleasant 62-year-old gentleman. He is currently in Trendelenburg position due to hypotension. He is very lethargic. He is not able to give me a very good history. Currently, denies chest pain, shortness of breath. The rest of his history is obtained from the chart. He presented to the emergency room on 06/27/2018 at 1340 with complaints of chest pain for the past 3 days, which is intermittent, substernal, radiating to the left shoulder, currently 6-7 times a day. Chest pain is worse with exertion. The patient is on oxygen at home for chronic dyspnea. PAST MEDICAL HISTORY: Includes anxiety, "blood clot," epilepsy, hyperlipidemia, hypertension, history of myocardial infarction, back surgery, neck surgery, shoulder surgery. SOCIAL HISTORY: He smokes. Denies alcohol use. ALLERGIES: DIPHENHYDRAMINE, LATEX, ADHESIVES. MEDICATIONS: 1. Aspirin 325 daily. 2. Hydrocodone. 3. Lipitor 80 mg daily. 4. Carvedilol 3.125 b.i.d. 5. Diazepam 5 mg b.i.d. 6. Depakote 500 mg b.i.d. 7. Cymbalta 60 mg daily. 8. Pepcid 40 mg daily. 9. Heparin drip. 10. Half inch nitroglycerin paste 10. Seroquel 200 mg p.o. at bedtime. 11. Topamax 200 mg p.o. b.i.d. PHYSICAL EXAMINATION: VITAL SIGNS: Sats 100% on room air, pulse 72, blood pressure 92/51 at 4 a.m. No other blood pressures are charted in the chart. GENERAL: He is alert. He is lethargic, oriented x 3, in no acute distress. NECK: Supple. No JVD. No bruit. CARDIOVASCULAR: S1, S2. No murmurs, rubs or gallops. LUNGS: Clear to auscultation bilaterally. ABDOMEN: Soft, nontender, nondistended with positive bowel sounds. EXTREMITIES: Lower extremity edema. DIAGNOSTIC DATA: Chest x-ray: No acute cardiopulmonary disease. EKG: Normal sinus rhythm at 70 beats per minute with PVCs. Repeat EKG: Sinus rhythm with is essentially normal. LABORATORY DATA: White count 6.5, hemoglobin 13.1, hematocrit 36.6, platelet count 193, INR 1.3. Sodium 140, potassium 3.8, chloride 107, BUN 11, creatinine 0.78, glucose 108. Troponin less than 0.02 x 2. LDL was 37. DIAGNOSES: 1. Unstable angina. 2. [place] [employer] class IV angina. 3. Tobacco use. 4. Hyperglycemia. 5. Hypotension. 6. Seizure disorder. PLAN: At this point, I will get a neurology consult just to make sure there are no contraindications to anticoagulation. The patient may need some fluid boluses, and Coreg and nitroglycerin may need to be held due to hypotension. I also recommend 2-D echo. I strongly advised the patient to stop smoking. I will recheck troponin now and in the a.m. Plan for heart catheterization this week. MD EARL Matthews/miguelina , 02:09 PM , 02:16 PM
[2018-06-29 05:46] LABS: Hematocrit 36.3 % (39.0-51.0); Hemoglobin 12.3 gm/dL (13.0-17.0); Mean Corpuscular Hemoglobin 31.5 pg (27.0-34.0); Mean Corpuscular Volume 92.7 fL (80.0-100.0); Mean Platelet Volume 7.7 fL (7.0-11.0); Platelet Count 172 th/mm3 (150-450); Red Blood Count 3.91 mil/mm3 (4.50-5.90); White Blood Count 5.1 th/mm3 (4.0-11.0)
[2018-06-29] MEDS: Levothyroxine 100 MCG Tablet PO SCH (06:24)
[2018-06-29] MEDS: Divalproex 500 MG ER Tablet PO SCH ×2 (08:53→20:44)
[2018-06-29] MEDS: Aspirin 325 MG Tablet PO SCH (08:53)
[2018-06-29] MEDS: Famotidine 20 MG Tablet PO SCH (08:54)
[2018-06-29] MEDS: Duloxetine 60 MG DR Capsule PO SCH (08:54)
[2018-06-29] MEDS: Topiramate 200 MG Tablet PO SCH ×2 (08:54→20:45)
--- NOTE | 2018-06-29 12:47 | P.PN ---
Subjective Interval history: Follow-up for unstable angina. Patient is currently resting in bed. Reports persistent chest pain radiating to the left shoulder. No shortness of breath, nausea vomiting, diaphoresis or fever or chills. Physical Exam Vital signs: Vital Signs 06/28/18 13:00 06/28/18 14:00 06/28/18 15:00 Temperature Pulse Rate 83 79 74 Respiratory Rate Blood Pressure Pulse Oximetry 06/28/18 16:00 06/28/18 16:42 06/28/18 17:00 Temperature 97.7 F Pulse Rate 72 75 Respiratory Rate 18 Blood Pressure 89/51 L 99/58 L Pulse Oximetry 100 06/28/18 17:48 06/28/18 18:00 06/28/18 18:12 Temperature Pulse Rate 78 Respiratory Rate 18 18 Blood Pressure Pulse Oximetry 06/28/18 19:00 06/28/18 20:00 06/28/18 20:28 Temperature 97.5 F L Pulse Rate 75 72 71 Respiratory Rate 18 Blood Pressure 120/68 Pulse Oximetry 100 06/28/18 21:00 06/28/18 22:00 06/28/18 23:00 Temperature Pulse Rate 74 76 73 Respiratory Rate Blood Pressure Pulse Oximetry 06/29/18 00:00 06/29/18 01:00 06/29/18 01:40 Temperature 98 F Pulse Rate 65 65 60 Respiratory Rate 18 Blood Pressure 96/59 L Pulse Oximetry 100 06/29/18 02:00 06/29/18 03:00 06/29/18 04:00 Temperature Pulse Rate 66 64 64 Respiratory Rate Blood Pressure Pulse Oximetry 06/29/18 04:35 06/29/18 05:00 06/29/18 06:00 Temperature 97.7 F Pulse Rate 71 61 61 Respiratory Rate 18 Blood Pressure 113/65 Pulse Oximetry 100 06/29/18 08:00 06/29/18 10:46 Temperature 97.5 F L Pulse Rate 72 Respiratory Rate 18 Blood Pressure 107/55 L Pulse Oximetry 100 98 Intake & Output 06/28/18 06/29/18 06/29/18 18:59 06:59 18:59 Intake Total 1840 / 1840 240 / 240 Balance 1840 / 1840 240 / 240 Weight 63.5 kg Intake: IV 1000 / 1000 NS Inj 1,000 ML @ 1000 mls/hr 1000 / 1000 IV.SIG .Q1H ONE Rx#:[id number] Oral 840 / 840 240 / 240 Other: # Voids 4 3 Date of Last Bowel Movement 06/28/18 # Bowel Movements 1 Narrative: GENERAL: Alert, NAD. SKIN: Warm and dry. HEAD: Normocephalic. EYES: No scleral icterus. No injection or drainage. NECK: Supple, trachea midline. No JVD or lymphadenopathy. CARDIOVASCULAR: Regular rate and rhythm without murmurs, gallops, or rubs. No pain on palpation of her left chest. RESPIRATORY: Moderate air entry, no wheezing noted. No accessory muscle use. GASTROINTESTINAL: Abdomen soft, non-tender, nondistended. MUSCULOSKELETAL: No cyanosis, or edema. BACK: Nontender without obvious deformity. No CVA tenderness. Results - Labs CBC & Chem 7: 06/29/18 04:48 06/28/18 03:06 Laboratory Results - last 24 hr 06/28/18 06/29/18 06/29/18 16:10 04:48 04:48 WBC 5.1 RBC 3.91 L Hgb 12.3 L Hct 36.3 L MCV 92.7 D MCH 31.5 MCHC 34.0 RDW 14.0 Plt Count 172 MPV 7.7 APTT 44.6 H 46.2 H - Procedures None Assessment and Plan - Assessment (1) Chest pain Code(s): R07.9 - Chest pain, unspecified Status: Acute - Plan Mr. Dorsey is a 62-year-old male with a history of coronary artery disease who presented to the emergency department in [place] on 06/27/2018 due to intermittent chest pain for 3 days prior to this admission. He reports substernal and left-sided chest pain radiating to his left shoulder. He does report some nausea. His chest pain occurs both at rest and on exertion. Patient apparently had cardiac cath before and was offered cardiac stent placement in [place]. However he refused due to his lack of confidence in the medical facility. Unstable angina Currently on aspirin 325 mg p.o. daily, atorvastatin 80 mg p.o. daily, carvedilol 3.125 mg p.o. twice daily. Continue heparin drip. Continue nitroglycerin topical as needed. Cardiology consulted. Patient will likely need cardiac catheterization. Wait for further recommendations from cardiology. Seizure disorder Anxiety Continue duloxetine 60 mg p.o. daily, Seroquel 200 mg p.o. nightly Continue diazepam 5 mg p.o. twice daily, Depakote 500 mg p.o. twice daily. Continue Topamax 200 mg p.o. twice daily Hypotension Blood pressure improved, currently in the 110 range systolic. Hypothyroidism GERD Continue levothyroxine 100 mcg p.o. daily and famotidine 40 mg p.o. daily. Full code. Heparin drip.
--- NOTE | 2018-06-29 17:22 | P.PNCA ---
Subjective Interval history: c/o chest pain Medications and Allergies Active Medications: Active Medications Hydrocodone Bitart/Acetaminophen ([place] 10/325) 1 tab PO TID PRN PRN Reason: Acute Pain Last Admin: 06/29/18 09:15 Dose: 1 tab Aspirin (Aspirin) 325 mg PO DAILY [facility] Last Admin: 06/29/18 08:53 Dose: 325 mg Atorvastatin Calcium (Lipitor) 80 mg PO DAILY [facility] Last Admin: 06/29/18 08:54 Dose: 80 mg Carvedilol (Coreg) 3.125 mg PO BID [facility] Last Admin: 06/29/18 08:54 Dose: 3.125 mg Diazepam (Valium) 5 mg PO BID PRN PRN Reason: ANXIETY Divalproex Sodium (Depakote Er) 500 mg PO BID [facility] Last Admin: 06/29/18 08:53 Dose: 500 mg Duloxetine HCl (Cymbalta) 60 mg PO DAILY [facility] Last Admin: 06/29/18 08:54 Dose: 60 mg Famotidine (Pepcid) 40 mg PO DAILY [facility] Last Admin: 06/29/18 08:54 Dose: 40 mg Heparin Sodium/Dextrose (Heparin/D5w 25,000 U/250 Ml) 25,000 unit in 250 mls @ 0 mls/hr IV.CONT TITRATE PRN; Protocol PRN Reason: Per Protocol Last Titration: 06/29/18 06:36 Dose: 600 units/hr, 6 mls/hr Sodium Chloride (Ns Inj) 1,000 mls @ 100 mls/hr IV.SIG .Q10H [facility] Last Infusion: 06/28/18 21:26 Dose: 100 mls/hr Levothyroxine Sodium (Synthroid) 100 mcg PO DAILY@0600 [facility] Last Admin: 06/29/18 06:24 Dose: 100 mcg Nitroglycerin (Nitro-Bid 2% Oint) 0.5 inch TOPICAL Q6HR [facility] Last Admin: 06/29/18 06:24 Dose: 0.5 inch Quetiapine Fumarate (Seroquel) 200 mg PO HS [facility] Last Admin: 06/28/18 21:35 Dose: 200 mg Sodium Chloride (Ns Flush) 2 ml IV.FLUSH BID [facility] Last Admin: 06/28/18 21:36 Dose: 2 ml Sodium Chloride (Ns Flush) 2 ml IV.FLUSH PRN PRN PRN Reason: FLUSH AFTER USING IV ACCESS Topiramate (Topamax) 200 mg PO BID [facility] Last Admin: 06/29/18 08:54 Dose: 200 mg Allergies Allergy/AdvReac Type Severity Reaction Status Date / Time diphenhydramine Allergy Severe NONE Verified 06/27/18 14:09 latex Allergy Severe Hives Verified 06/27/18 14:09 adhesive Allergy Unknown Rash Verified 06/27/18 14:09 Home Medications Medication Instructions Recorded Confirmed Type amlodipine 5 mg PO HS 06/27/18 06/27/18 History atorvastatin 80 mg PO DAILY 06/27/18 06/27/18 History diazepam [Valium] 5 mg PO BID 06/27/18 06/27/18 History divalproex [Depakote ER] 500 mg PO BID 06/27/18 06/27/18 History duloxetine [Cymbalta] 60 mg PO DAILY 06/27/18 06/27/18 History famotidine [Pepcid] 40 mg PO DAILY 06/27/18 06/27/18 History hydrocodone-acetaminophen [[place]] 1 tab PO TID 06/27/18 06/27/18 History levothyroxine [Synthroid] 100 mcg PO DAILY 06/27/18 06/27/18 History quetiapine [Seroquel] 200 mg PO HS 06/27/18 06/27/18 History topiramate [Topamax] 200 mg PO BID 06/27/18 06/27/18 History Physical Exam Vital signs: Vital Signs 06/28/18 17:48 06/28/18 18:00 06/28/18 18:12 Temperature Pulse Rate 78 Respiratory Rate 18 18 Blood Pressure Pulse Oximetry 06/28/18 19:00 06/28/18 20:00 06/28/18 20:28 Temperature 97.5 F L Pulse Rate 75 72 71 Respiratory Rate 18 Blood Pressure 120/68 Pulse Oximetry 100 06/28/18 21:00 06/28/18 22:00 06/28/18 23:00 Temperature Pulse Rate 74 76 73 Respiratory Rate Blood Pressure Pulse Oximetry 06/29/18 00:00 06/29/18 01:00 06/29/18 01:40 Temperature 98 F Pulse Rate 65 65 60 Respiratory Rate 18 Blood Pressure 96/59 L Pulse Oximetry 100 06/29/18 02:00 06/29/18 03:00 06/29/18 04:00 Temperature Pulse Rate 66 64 64 Respiratory Rate Blood Pressure Pulse Oximetry 06/29/18 04:35 06/29/18 05:00 06/29/18 06:00 Temperature 97.7 F Pulse Rate 71 61 61 Respiratory Rate 18 Blood Pressure 113/65 Pulse Oximetry 100 06/29/18 07:00 06/29/18 08:00 06/29/18 09:00 Temperature 97.5 F L Pulse Rate 66 74 76 Respiratory Rate 18 Blood Pressure 107/55 L Pulse Oximetry 100 06/29/18 10:00 06/29/18 10:46 06/29/18 11:00 Temperature Pulse Rate 72 66 Respiratory Rate Blood Pressure Pulse Oximetry 98 06/29/18 12:00 06/29/18 13:00 Temperature 97.6 F Pulse Rate 68 62 Respiratory Rate 18 Blood Pressure 96/59 L Pulse Oximetry 99 Intake & Output 06/28/18 06/29/18 06/29/18 18:59 06:59 18:59 Intake Total 1840 / 1840 240 / 240 Balance 1840 / 1840 240 / 240 Weight 63.5 kg Intake: IV 1000 / 1000 NS Inj 1,000 ML @ 1000 mls/hr 1000 / 1000 IV.SIG .Q1H ONE Rx#:[id number] Oral 840 / 840 240 / 240 Other: # Voids 4 3 Date of Last Bowel Movement 06/28/18 # Bowel Movements 1 - Constitutional no acute distress - Routine HEENT Exam Head: Present: normocephalic - Routine Neck Exam Present: JVD - Routine Respiratory Exam Present: CTA bilaterally - Routine Cardiovascular Exam Present: S1, S2 - Routine Abdominal Exam Present: soft - Routine Extremities Exam Comments: no marcin Results 06/29/18 04:48 06/28/18 03:06 Cardiac Enzymes 06/27/18 06/28/18 Range/Units 21:50 03:06 Troponin I Less than 0.02 L Less than 0.02 L (0.02-0.05) ng/mL Coagulation 06/27/18 06/28/18 06/28/18 Range/Units 23:11 00:38 03:06 APTT Greater than 277.5 H* 177.4 H* D 34.1 H D (23.4-31.7) sec 11/06/28/18 06/29/18 Range/Units 10:57 16:10 04:48 APTT 46.5 H D 44.6 H 46.2 H (23.4-31.7) sec Lipids 06/28/18 Range/Units 03:06 Triglycerides 68 (42-150) mg/dL Cholesterol 107 L (120-200) mg/dL HDL Cholesterol 56.2 (40.0-60.0) mg/dL Cholesterol/HDL Ratio 1.90 Ratio CBC 06/28/18 06/29/18 Range/Units 03:06 04:48 WBC 6.5 5.1 (4.0-11.0) th/mm3 RBC 4.14 L 3.91 L (4.50-5.90) mil/mm3 Hgb 13.1 12.3 L (13.0-17.0) gm/dL Hct 36.6 L 36.3 L (39.0-51.0) % Plt Count 193 172 (150-450) th/mm3 Neut # (Auto) 2.9 (1.8-7.7) th/mm3 Lymph # (Auto) 2.9 (1.0-4.8) th/mm3 Dolores # (Auto) 0.5 (0.0-0.9) th/mm3 Eos # (Auto) 0.2 (0.0-0.4) th/mm3 Baso # (Auto) 0.0 (0.0-0.2) th/mm3 Comprehensive Metabolic Panel 06/28/18 Range/Units 03:06 Sodium 140 (136-145) meq/L Potassium 3.8 (3.5-5.1) meq/L Chloride 107 (98-107) meq/L Carbon Dioxide 26.4 (21.0-32.0) meq/L BUN 11 (7-18) mg/dL Creatinine 0.78 (0.60-1.30) mg/dL Calcium 8.7 (8.5-10.1) mg/dL Intake and Output 06/29/18 06/29/18 06/29/18 06:59 14:59 22:59 Intake Total 240 / 240 Balance 240 / 240 Intake: Oral 240 / 240 Other: # Voids 3 Weight 63.5 kg Assessment and Plan - Assessment (1) Chest pain Code(s): R07.9 - Chest pain, unspecified Status: Acute - Plan 1.) [facility] scheduled for 06/30/18, recheck trop and bmp/cbc in am; i explained to the patient that the risk of cath/pci is 5-10% chance of , mi , cva, need for cabg/surgery/dialysis/blood transfusion, bleeding, infection, anaphylaxia and arrythmia, he understands and consents to the procedure
[2018-06-29] MEDS: Sod Chloride 0.9% Inj 1,000 ML IV.SIG SCH (20:46)
[2018-06-30] MEDS: diazePAM 5 MG Tablet PO PRN (00:13)
[2018-06-30] MEDS: Levothyroxine 100 MCG Tablet PO SCH (05:30)
[2018-06-30 05:51] LABS: Hematocrit 33.9 % (39.0-51.0); Hemoglobin 11.6 gm/dL (13.0-17.0); Mean Corpuscular HGB Conc 34.3 % (32.0-36.0); Mean Corpuscular Hemoglobin 31.4 pg (27.0-34.0); Mean Corpuscular Volume 91.6 fL (80.0-100.0); Mean Platelet Volume 7.9 fL (7.0-11.0); Platelet Count 168 th/mm3 (150-450); Red Cell Distribution Width 14.1 % (11.6-17.2); White Blood Count 4.7 th/mm3 (4.0-11.0)
[2018-06-30 06:14] LABS: Anion Gap 8 meq/L (5-15); Blood Urea Nitrogen 12 mg/dL (7-18); Calcium 8.1 mg/dL (8.5-10.1); Carbon Dioxide 23.5 meq/L (21.0-32.0); Chloride 111 meq/L (98-107); Glomerular Filtration Rate Greater Than 89 mL/min (>89); Glucose,Random 85 mg/dL (74-106); Potassium 3.9 meq/L (3.5-5.1); Sodium 142 meq/L (136-145)
[2018-06-30] MEDS: Divalproex 500 MG ER Tablet PO SCH ×2 (09:50→21:06)
[2018-06-30] MEDS: Famotidine 20 MG Tablet PO SCH (09:51)
[2018-06-30] MEDS: Aspirin 325 MG Tablet PO SCH (09:51)
[2018-06-30] MEDS: Duloxetine 60 MG DR Capsule PO SCH (09:51)
[2018-06-30] MEDS: Topiramate 200 MG Tablet PO SCH ×2 (09:51→21:06)
[2018-06-30] MEDS ORDERED: Iohexol 350 MG/ML 50 ML Vial (for Cath Lab) IVCONTRAST ONE (13:46)
[2018-06-30] MEDS ORDERED: fentaNYL Citrate Inj 100 MCG/2 ML Ampul ONE (13:55)
[2018-06-30] MEDS ORDERED: Heparin/NS PF Inj 1,500 ML ONE (13:55)
[2018-06-30] MEDS ORDERED: Lidocaine PF 1% Inj 30 ML Vial ONE (13:58)
--- NOTE | 2018-06-30 14:15 | P.PN ---
Subjective Interval history: Follow-up for unstable angina. Patient complains of persistent chest pain. No fever, chills. Waiting for Cardiac cath today. Physical Exam Vital signs: Vital Signs 06/29/18 15:00 06/29/18 16:00 06/29/18 17:00 Temperature 97.4 F L Pulse Rate 75 79 74 Respiratory Rate 18 Blood Pressure 100/56 L Pulse Oximetry 98 06/29/18 18:00 06/29/18 19:00 06/29/18 20:00 Temperature 97.5 F L Pulse Rate 74 70 67 Respiratory Rate 16 Blood Pressure 108/55 L Pulse Oximetry 100 06/29/18 21:00 06/29/18 22:00 06/29/18 23:00 Temperature Pulse Rate 70 68 65 Respiratory Rate Blood Pressure Pulse Oximetry 06/30/18 00:00 06/30/18 01:00 06/30/18 02:00 Temperature 98.1 F Pulse Rate 60 64 68 Respiratory Rate 16 Blood Pressure 89/50 L Pulse Oximetry 98 06/30/18 03:00 06/30/18 04:00 06/30/18 05:00 Temperature 97.6 F Pulse Rate 65 64 64 Respiratory Rate 16 Blood Pressure 93/57 L Pulse Oximetry 99 06/30/18 06:00 06/30/18 07:00 06/30/18 11:00 Temperature Pulse Rate 64 67 64 Respiratory Rate Blood Pressure Pulse Oximetry 06/30/18 12:00 06/30/18 13:00 Temperature 97.7 F Pulse Rate 68 66 Respiratory Rate 16 Blood Pressure 97/49 L Pulse Oximetry 99 Intake & Output 06/29/18 06/30/18 06/30/18 18:59 06:59 18:59 Intake Total 960 / 960 720 / 720 Output Total 1700 / 1700 1625 / 1625 Balance -740 / -740 -905 / -905 Weight 66 kg Intake: Oral 960 / 960 720 / 720 Output: Urine 1700 / 1700 1625 / 1625 Other: Date of Last Bowel Movement 06/29/18 # Bowel Movements 1 Narrative: GENERAL: Alert, NAD. SKIN: Warm and dry. HEAD: Normocephalic. EYES: No scleral icterus. No injection or drainage. NECK: Supple, trachea midline. No JVD or lymphadenopathy. CARDIOVASCULAR: Regular rate and rhythm without murmurs, gallops, or rubs. No pain on palpation of her left chest. RESPIRATORY: Moderate air entry, no wheezing noted. No accessory muscle use. GASTROINTESTINAL: Abdomen soft, non-tender, nondistended. MUSCULOSKELETAL: No cyanosis, or edema. BACK: Nontender without obvious deformity. No CVA tenderness. Results - Labs CBC & Chem 7: 06/30/18 04:29 06/30/18 04:29 Laboratory Results - last 24 hr 06/30/18 06/30/18 06/30/18 04:29 04:29 04:29 WBC 4.7 RBC 3.70 L Hgb 11.6 L Hct 33.9 L MCV 91.6 MCH 31.4 MCHC 34.3 RDW 14.1 Plt Count 168 MPV 7.9 APTT 45.5 H Sodium 142 Potassium 3.9 Chloride 111 H Carbon Dioxide 23.5 Anion Gap 8 BUN 12 Creatinine 0.81 Estimated GFR Greater than 89 Random Glucose 85 Calcium 8.1 L Troponin I Less than 0.02 L - Procedures None Assessment and Plan - Assessment (1) Chest pain Code(s): R07.9 - Chest pain, unspecified Status: Acute - Plan Mr. Dorsey is a 62-year-old male with a history of coronary artery disease who presented to the emergency department in [place] on 06/27/2018 due to intermittent chest pain for 3 days prior to this admission. He reports substernal and left-sided chest pain radiating to his left shoulder. He does report some nausea. His chest pain occurs both at rest and on exertion. Patient apparently had cardiac cath before and was offered cardiac stent placement in [place]. However he refused due to his lack of confidence in the medical facility. Unstable angina Currently on aspirin 325 mg p.o. daily, atorvastatin 80 mg p.o. daily, carvedilol 3.125 mg p.o. twice daily. Continue heparin drip. Continue nitroglycerin topical as needed. Cardiology consulted. Cath today. Seizure disorder Anxiety Continue duloxetine 60 mg p.o. daily, Seroquel 200 mg p.o. nightly Continue diazepam 5 mg p.o. twice daily, Depakote 500 mg p.o. twice daily. Continue Topamax 200 mg p.o. twice daily Hypotension Blood pressure improved, currently in the 110 range systolic. Hypothyroidism GERD Continue levothyroxine 100 mcg p.o. daily and famotidine 40 mg p.o. daily. Full code. Heparin drip.
--- NOTE | 2018-06-30 15:13 | MR ---
cc: Tyler Pierson MD DATE: 06/30/2018 PROCEDURE: Left heart catheterization, left ventriculography, coronary angiography. INDICATIONS: Unstable angina, [facility] class IV angina, coronary artery disease, tobacco use, multiple cardiac risk factors. DESCRIPTION OF PROCEDURE: The patient was brought to the cardiac catheterization lab and prepped and draped in the usual sterile fashion. Then mL of 1% lidocaine was used to locally anesthetize the right common femoral artery. A 4-Mongolian sheath was placed in right common femoral artery. A 4-Mongolian JL4 and JL5 catheters were used to perform left and right coronary angiography and left ventriculography. FINDINGS: LV pressure is 125/5-7. EF to 50-55%. Right coronary artery is nondominant, no significant disease angiographically. Left main coronary artery is free of significant disease angiographically, reference vessel diameter of 4.5 mm. Left circumflex vessel is dominant. Difficult to determine whether this is a slight kink in the proximal left circumflex versus a focal eccentric plaque, but the vessel does not appear to be more than 20-30% stenotic at that point. Again, the left circumflex vessel was dominant. There is a medium size distal obtuse marginal vessel, 2.5-2.7 reference vessel diameter, with no significant disease angiographically. The left PDA is a relatively small vessel, 2.5 mm in diameter. No significant focal stenosis. There is a ramus intermedius vessel, which is a medium size vessel, 2.5 mm reference vessel diameter proximally. Minimal luminal irregularities in the proximal segment up to 5-10% angiographically. The LAD has an ostial 10-20% stenosis. It has eccentric fibrocalcification fluoroscopically. First diagonal artery is a medium size vessel, 2.25-2.5 mm reference vessel diameter, with no significant disease angiographically. LAD is transapical and supplies the distal inferoapical wall and has no significant disease angiographically in the mid to distal segment. CONCLUSION: 1. Angiographically mild 2-vessel coronary artery disease and left dominant system as detailed above. 2. Normal to low normal LV systolic function, EF 50-55%. 3. Focal fibrocalcification of the proximal LAD as detailed above. 4. Recommend medical management of coronary artery disease and cardiac risk factor modification, I have strongly advised the patient to stop smoking. He understands. Recommend baby aspirin 81 mg a day. Treat lipids per NCEP guidelines. MD EARL Matthews/len , 02:51 PM , 03:00 PM
--- NOTE | 2018-06-30 15:15 | CATHPROC ---
PicLyf HIS Report Study Information Study Number Admission Scheduled Start Study Start [id number] Jun 27 2018 2:32PM 06/30/2018 Jun 30 2018 1:39PM [place] [facility] Electrophysiology Study Admit Source Facility Department Other [facility] - Credit Collections Analyst Physician and Clinical Staff Initial Tyler Barraza Dry Cleaning Supervisor Breana Gong,ERA Dry Cleaning SupervisorJarrod Whittaker,RN Recorder Rosenda Coelho ,RT(R) Scrub Regina Zhou,RT(R) Procedures Performed Procedure Location (Site) Vessel Name Coronary Angiograms LCA Left Coronary Coronary Angiograms RCA Right Coronary L Heart Cath LV Gram-hand inj. LV LV Ventricle Equipment Time Cops Description Size Mfg Part Number Used/Scraped TRANSDUCER, TRUWAVE [id number] 13:56 ZAVALA DAVIS * Used W/STOCKCOCK *[id number] [id number] *[id number] *[id number] 13:56 W-locate BLANKET,WARM AIR CCL * Used *[id number] 13:56 W-locate PACK, CCL CUSTOM * Used *[id number] 13:56 [employer] PACER PEN, SKIN DUAL W/ RULER * Used *[id number] 13:56 [employer] WIRE, 3MMJ .035 180CM 180CM Used *[id number] 13:56 NAMIC MANIFOLD, 4 PORT * Used *[id number] 13:56 NYCOMED OMNIPAQUE, 350 MG, 150ML 150ML [id number] Used [id number] 13:56 AttentioUMO MEDICAL SHEATH, FR4 TERUMO (10CM) FR 4 Used *[id number] History: Current Medications Medication Dosage/Unit Route Frequency Last Date/Time Taken ASA Statins (any) Beta Casey History: Allergies Allergy Reaction Adhesives Benadryl Chicken Meat Rash latex Hives morphine NONE Motrin Rash Oily Fish Tylenol acetaminophen NONE ibuprofen Rash adhesive Rash diphenhydramine NONE fish oil NONE chicken derived Rash History: Risk Factors Family History of Hypertension Dyslipidemia Previous TN Previous Heart Failure Premature CAD Yes Yes Yes Yes No Prior Valve Prior PCI Prior CABG Surgery No No No Cerebrovascular Peripheral Artery Chronic Lung On Dialysis Diabetes Disease Disease Disease No No No Yes No History: Stress Tests Stress or Imaging Studies Performed No History: Other Current Smoker Yes Labs Hgb (g/dl) Hct (%) WBC (l/cumm) Platelets (thousands) 11.60-17.00 35.00-51.00 4.00-11.00 150.00-450.00 11.6 33.9 4.7 168 BUN (mg/dl) Creatinine (mg/dl) BUN:Creatinine (1:x) 7.00-18.00 0.50-1.30 10.00-20.00 12 0.8 15 Na (meq/l) K (meq/l) 136.00-145.00 3.50-5.10 142 3.9 INR (PTT:PT) 0.90-1.10 1.3 Troponin I (ng/ml) CPK (u/l) CPK-MB (ng/ML) 0.02-0.05 26.00-308.00 0.50-3.60 0.02 80 Not Drawn Medication Medication Total Dose (Bolus/Oral) Medication Total Dosage/Unit 1% XYLOCAINE 20 mL FENTANYL 50 mcg VERSED 1 mg Medications (Bolus/Oral) Medication Time Given Dosage/Unit Administered By Reason 1% XYLOCAINE 06/30/2018 2:35:48 PM 20 mL Tyler Pierson 20 mL 1% XYLOCAINE given in lab by Tyler Pierson in Right Groin via Subcutaneous. Ordered by Tyler Hung. VERSED 06/30/2018 2:37:00 PM 1 mg Jarrod Gibbs 1 mg VERSED given in lab by Jarrod Gibbs RN via Peripheral IV. Ordered by Tyler Pierson. FENTANYL 06/30/2018 2:38:00 PM 50 mcg Jarrod Gibbs 50 mcg FENTANYL given in lab by Jarrod Gibbs RN via Peripheral IV. Ordered by Tyler Pierson. Medication (Drip) Medication Time Given Dosage/Unit Concentration/Unit Diluent (ml) Solution IV Solutions 06/30/2018 1:51:29 PM 50 mL (IV) NaCl .9 Patient arrived on IV Solutions via Peripheral IV. Pump/Drip Flow using NaCl .9. Initial Case Assessment Cardiovascular HR NIBP Chest Pain 68 136/75 0 Edema Present Skin color Skin None Normal Warm Dry Circulatory - Right Pulses Dorsalis Pedis Femoral 2 2 Scale (0,1,2,3,4,d) Circulatory - Left Pulses Dorsalis Pedis Femoral 2 2 Scale (0,1,2,3,4,d) Circulatory - Lower Extremities Color Lower Right Color Lower Left Normal Normal Neurological State Oriented to time-place- Alert Moves all extremities person Respiration - General Respiration Rate SpO2 (%) (B/min) 20 99 Final Case Assessment Cardiovascular HR NIBP Chest Pain 68 122/75 0 Edema Present Skin color Skin None Normal Warm Dry Circulatory - Right Pulses Dorsalis Pedis Femoral 2 2 Scale (0,1,2,3,4,d) Circulatory - Left Pulses Dorsalis Pedis Femoral 2 2 Scale (0,1,2,3,4,d) Circulatory - Lower Extremities Color Lower Right Color Lower Left Normal Normal Neurological State Oriented to time-place- Alert Moves all extremities person Respiration - General Respiration Rate SpO2 (%) (B/min) 20 99 Chronological Log Time Study Chronological Log 13:46:40 Patient arrived via Bed. 13:46:50 Patient Name, D.O.B, / Armband Verified By R.N. 13:51:17 Consent signed by the physician and the patient and verified by the Credit Collections Analyst staff. 13:51:18 Pre-op and post- op instructions given; patient acknowledges understanding of instructions. 13:51:19 Verbal Stimulation=2 Physical Stimulation=2 Airway=2 Respiration=2 TOTAL=8. (0=absent, 1=li mited, 2=present) 13:51:22 Patient has been NPO for More than 6Hrs. 13:51:23 Skin Breakdown- none per patient 13:51:24 Patient Warmer Placed on the Table. 13:51:27 Colten Prominences Protected 13:51:28 A # 20 IV was noted in the Antecubital (right). Grade = 0 13:51:29 Patient arrived on IV Solutions via Peripheral IV. Pump/Drip Flow using NaCl .9. 13:51:30 History and physical on the chart or being dictated. Assessment: Initial Case, HR=68 BPM, ADAH=713/75 mmhg, Chest Pain=0, Edema=None, Color=Normal, Skin = Warm, Dry Right Pulses: Bharathi Ped=2, Femoral=2 Left Pulses: Bharathi Ped=2, Femoral=2 13:51:30 Lower Right Extremities: Color=Normal Lower Left Extremities: Color=Normal Neurological: State=Alert, Ox3, TARANGO Respiration: Resp=20 B/min, SpO2=99 % Vitals capture started with the following parameters, Patient=Adult, Interval=5 min, Initial Pr szpgnv=500 mmHg, 13:51:34 Deflation Rate=5 mmHg, Cuff placed on Left Arm 13:52:09 HR=63 bpm, IHLL=693/75 mmhg, DjD1=890.0 %, Resp=14 B/min 13:57:12 HR=67 bpm, PLYK=308/75 mmhg, SpO2=98.0 %, Resp=23 B/min 13:57:42 Bilateral groins prepped with 2% chlorhexidine, and draped after a 3 minute waiting time. 14:02:02 Reference ECG taken 14:02:09 HR=64 bpm, IMZF=738/82 mmhg, IkZ4=685.0 %, Resp=13 B/min, Pain=0, Leslie=10, Lemos=2 14:02:14 MD paged 14:03:14 Pressure channel 1 zeroed. 14:07:08 HR=63 bpm, BBED=810/80 mmhg, SpO2=99.0 %, Resp=12 B/min, Pain=0, Leslie=10, Lemso=2 14:12:07 HR=66 bpm, HEHF=944/76 mmhg, SpO2=98.0 %, Resp=13 B/min 14:12:09 MD responded 14:17:08 HR=65 bpm, NKPB=204/78 mmhg, SpO2=99.0 %, Resp=14 B/min, Pain=0, Leslie=10, Lemos=2 14:22:09 HR=68 bpm, BZUB=160/77 mmhg, SpO2=99.0 %, Resp=14 B/min 14:27:10 HR=67 bpm, ZOVH=434/75 mmhg, SpO2=98.0 %, Resp=23 B/min, Pain=0, Leslie=10, Lemos=2 14:31:17 MD arrived. 14:32:13 HR=64 bpm, UXSK=050/68 mmhg, SpO2=85.0 %, Resp=18 B/min Time Out. Correct patient, correct procedure, correct physician, labs, allergies, and equipment verified with pathology laboratory technologist 14:35:15 team present. Fire risk assesment completed (see hard stop sheet for coding). Time Out Conc urred by MD and individual staff in procedure. 14:35:44 Case Start 20 mL 1% XYLOCAINE given in lab by Tyler Pierson in Right Groin via Subcutaneous. Ordered by Dangelo, 14:35:48 Tyler. 14:37:00 1 mg VERSED given in lab by Jarrod Gibbs, RN via Peripheral IV. Ordered by Adam Pierson 14:37:10 HR=62 bpm, ZPQS=475/70 mmhg, SpO2=98.0 %, Resp=13 B/min, Pain=0, Leslie=10, Lemos=2 14:37:33 Access site was Right Femoral Artery. 14:38:00 50 mcg FENTANYL given in lab by Jarrod Gibbs, RN via Peripheral IV. Ordered by Flaca Pierson rthur. 14:38:00 A SHEATH, FR4 TERUMO (10CM) FR 4 was advanced into the Fem Art (right) using the Percutaneo us technique. A JR 4.0 INFINITI CATHETER FR 4 was advanced over a wire. OMNIPAQUE, 350 MG, 150ML 150ML was us ed for 14:38:29 injections. Recorded Pressure: LV, HR=61, Condition=Condition 1 14:39:57 (Left Ventricle) LV 125/5/15 14:40:05 The LV was manually injected with 10 cc's and visualized. OMNIPAQUE, 350 MG, 150ML 150ML us ed. Recorded Pressure: LV, Ao, HR=61, Condition=Condition 1 14:40:14 (Left Ventricle) LV 120/4/13, (Aorta) Ao 124/71/92 14:40:28 The RCA was injected and visualized at various angles. OMNIPAQUE, 350 MG, 150ML 150ML used . After removing the current catheter a JL 4.0 INFINITI CATHETER FR 4 was advanced over a WIRE, 3 MMJ .035 180CM 14:41:06 180CM. 14:42:11 HR=64 bpm, ROZT=226/75 mmhg, SpO2=98.0 %, Resp=13 B/min 14:42:22 The LCA was injected and visualized at various angles. OMNIPAQUE, 350 MG, 150ML 150ML used . 14:43:08 Catheter was removed 14:43:50 Case End (Physician broke scrub) Assessment: Final Case, HR=68 BPM, KSGI=166/75 mmhg, Chest Pain=0, Edema=None, Color=Normal, S kin = Warm, Dry Right Pulses: Bharathi Ped=2, Femoral=2 Left Pulses: Bharathi Ped=2, Femoral=2 14:44:02 Lower Right Extremities: Color=Normal Lower Left Extremities: Color=Normal Neurological: State=Alert, Ox3, TARANGO Respiration: Resp=20 B/min, SpO2=99 % 14:44:31 Catheter(s) removed without difficulty 14:44:34 Sheath removed; pressure applied to access site. 14:44:38 Sterile dressing applied to site 14:44:38 No case complications noted. 14:44:39 Cine recording checked. 14:44:45 A Left Heart Cath was performed. 14:46:30 Activated Clotting Time Drawn 14:47:12 HR=65 bpm, EMBU=094/75 mmhg, VeS0=059.0 %, Resp=19 B/min, Pain=0, Leslie=10, Lemos=2 14:50:07 ACT (Normal Range 90-180) = 169 14:52:17 HR=62 bpm, ZADX=030/65 mmhg, Resp=13 B/min 14:57:14 HR=62 bpm, WCSO=261/72 mmhg, SpO2=97.0 %, Resp=10 B/min 15:02:48 HR=64 bpm, FHED=170/71 mmhg, Resp=13 B/min 15:07:10 HR=62 bpm, WJYQ=577/73 mmhg, SpO2=99.0 %, Resp=13 B/min 15:15:11 Patient moved to [facility] End Study - Contrast Media Used In Study Contrast Total Opened (mL) Total Used (mL) Total Wasted (mL) Omnipaque 30 30 0 End Study - Maximum Contrast Load Max Contrast Load (mL) 411.9 End Study - Radiation Exposure Fluoro Time (minutes) 1.3 End Study - Patient Disposition Complications Transferred To Interventional Outcome No Telemetry Bed No attempt made
[2018-07-01] MEDS: Levothyroxine 100 MCG Tablet PO SCH (05:48)
[2018-07-01 07:41] VITALS: RESP 20
[2018-07-01] MEDS: Divalproex 500 MG ER Tablet PO SCH (08:37)
[2018-07-01] MEDS: diazePAM 5 MG Tablet PO PRN (08:38)
[2018-07-01] MEDS: Famotidine 20 MG Tablet PO SCH (08:38)
[2018-07-01] MEDS: Duloxetine 60 MG DR Capsule PO SCH (08:38)
[2018-07-01] MEDS: Topiramate 200 MG Tablet PO SCH (09:26)
--- NOTE | 2018-07-01 09:40 | ECG ---
Date Performed: 07/01/2018 Time Performed: 07:44:36 PTAGE: 62 years EKG: Sinus rhythm Normal ECG PREVIOUS TRACING : 06/27/2018 12.05 DOCTOR: Bob Billings Interpretating Date/Time 07/01/2018 09:38:45
--- NOTE | 2018-07-01 10:59 | P.PN ---
Subjective Interval history: sleeping soundly flat in bed when I walked in earlier stated to nurse some chest pain- on exam reporducible cdenies anyr eflux, or shortnes of breath blunt affect- asking for some support when he gets discharge- I told him we will ask CM denies any hallucinations or suicidal thoughts states sees a psychiatrist- Dr Hendricks as OP- and has ff up Physical Exam Vital signs: Vital Signs 06/30/18 11:00 06/30/18 12:00 06/30/18 13:00 Temperature 97.7 F Pulse Rate 64 68 66 Respiratory Rate 16 Blood Pressure 97/49 L Pulse Oximetry 99 06/30/18 15:00 06/30/18 15:36 06/30/18 16:00 Temperature 97.8 F Pulse Rate 64 62 66 Respiratory Rate 16 Blood Pressure 108/77 Pulse Oximetry 99 06/30/18 17:00 06/30/18 18:00 06/30/18 19:00 Temperature Pulse Rate 72 74 66 Respiratory Rate Blood Pressure Pulse Oximetry 06/30/18 20:00 06/30/18 21:00 06/30/18 21:40 Temperature 97.6 F Pulse Rate 74 70 Respiratory Rate 16 16 Blood Pressure 130/76 Pulse Oximetry 99 06/30/18 22:00 06/30/18 23:00 06/30/18 23:28 Temperature 98.1 F Pulse Rate 72 72 69 Respiratory Rate 16 Blood Pressure 124/75 Pulse Oximetry 98 07/01/18 00:00 07/01/18 01:00 07/01/18 02:00 Temperature Pulse Rate 69 62 66 Respiratory Rate Blood Pressure Pulse Oximetry 07/01/18 03:00 07/01/18 03:36 07/01/18 03:37 Temperature 98.4 F Pulse Rate 64 63 Respiratory Rate 16 16 Blood Pressure 105/64 Pulse Oximetry 99 07/01/18 04:00 07/01/18 05:00 07/01/18 05:54 Temperature Pulse Rate 64 63 Respiratory Rate 16 Blood Pressure Pulse Oximetry 07/01/18 06:00 07/01/18 07:00 07/01/18 07:37 Temperature 97.8 F Pulse Rate 68 63 61 Respiratory Rate 20 Blood Pressure 101/66 Pulse Oximetry 100 07/01/18 08:00 07/01/18 09:00 07/01/18 10:00 Temperature Pulse Rate 64 68 65 Respiratory Rate Blood Pressure Pulse Oximetry 07/01/18 10:56 Temperature 97.4 F L Pulse Rate Respiratory Rate 20 Blood Pressure 96/60 L Pulse Oximetry 99 Intake & Output 06/30/18 07/01/18 07/01/18 18:59 06:59 18:59 Intake Total 1420 / 1420 240 / 240 Output Total 1600 / 1600 1949 / 1949 Balance -180 / -180 -1710 / -1710 Weight 63 kg Intake: Oral 920 / 920 240 / 240 Anesthesia Amount 500 / 500 Output: Urine 1600 / 1600 1949 Other: Date of Last Bowel Movement 06/29/18 06/29/18 # Bowel Movements 0 Narrative: GENERAL: Alert, NAD. no acute distress SKIN: Warm and dry. HEAD: Normocephalic. EYES: No scleral icterus. No injection or drainage. NECK: Supple, trachea midline. CARDIOVASCULAR: Regular rate and rhythm without murmurs, gallops, or rubs. some pain when pressed on sternu RESPIRATORY: Moderate air entry, no wheezing noted. No accessory muscle use. GASTROINTESTINAL: Abdomen soft, non-tender, nondistended. MUSCULOSKELETAL: No cyanosis, or edema. BACK: Nontender without obvious deformity. No CVA tenderness. Results - Labs CBC & Chem 7: 06/30/18 04:29 06/30/18 04:29 - Procedures 06/30. cardiac cath Angiographically mild 2-vessel coronary artery disease and left dominant system as detailed above. Normal to low normal LV systolic function, EF 50-55%. Focal fibrocalcification of the proximal LAD as detailed above. Assessment and Plan - Assessment (1) Chest pain Code(s): R07.9 - Chest pain, unspecified Status: Acute - Plan . Mr. Dorsey is a 62-year-old male with a history of coronary artery disease who presented to the emergency department in [place] on 06/27/2018 due to intermittent chest pain for 3 days prior to this admission. He reports substernal and left-sided chest pain radiating to his left shoulder. He does report some nausea. His chest pain occurs both at rest and on exertion. Patient apparently had cardiac cath before and was offered cardiac stent placement in [place]. However he refused due to his lack of confidence in the medical facility. Unstable angina S/P cardiac cath- mild 2V disease Currently on aspirin 325 mg p.o. daily, atorvastatin 80 mg p.o. daily, carvedilol 3.125 mg p.o. twice daily. - ROSARIO heparin drip - topical nitrates - atypical CP- reporcucible with palpation- some anxiety component- discussed with him results of cath and blood works - a repeat troponin was ordered by Dr. Pierson- pending - right groin -cath site- no hematoma Seizure disorder Anxiety Continue duloxetine 60 mg p.o. daily, Seroquel 200 mg p.o. nightly Continue diazepam 5 mg p.o. twice daily, Depakote 500 mg p.o. twice daily. Continue Topamax 200 mg p.o. twice daily - OP ff up with Dr. Patterson"- psychaitrist Hypotension- improved- up and ambualting Blood pressure improved, currently in the 110 range systolic. Hypothyroidism GERD Continue levothyroxine 100 mcg p.o. daily and famotidine 40 mg p.o. daily. Full code. ROSARIO xie today if troponin negative CM consult- asling for support- request for [facility]
--- NOTE | 2018-07-01 14:24 | P.PNCA ---
Subjective Interval history: lethargic, flat affect in nad Medications and Allergies Active Medications: Active Medications Hydrocodone Bitart/Acetaminophen ([place] 10/325) 1 tab PO TID PRN PRN Reason: Acute Pain Last Admin: 07/01/18 05:54 Dose: 1 tab Aspirin (Aspirin Chew) 81 mg PO DAILY [facility] Last Admin: 07/01/18 09:26 Dose: 81 mg Atorvastatin Calcium (Lipitor) 80 mg PO DAILY [facility] Last Admin: 07/01/18 08:37 Dose: 80 mg Carvedilol (Coreg) 3.125 mg PO BID [facility] Last Admin: 07/01/18 08:38 Dose: 3.125 mg Diazepam (Valium) 5 mg PO BID PRN PRN Reason: ANXIETY Last Admin: 07/01/18 08:38 Dose: 5 mg Divalproex Sodium (Depakote Er) 500 mg PO BID [facility] Last Admin: 07/01/18 08:37 Dose: 500 mg Duloxetine HCl (Cymbalta) 60 mg PO DAILY [facility] Last Admin: 07/01/18 08:38 Dose: 60 mg Famotidine (Pepcid) 40 mg PO DAILY [facility] Last Admin: 07/01/18 08:38 Dose: 40 mg Heparin Sodium/Dextrose (Heparin/D5w 25,000 U/250 Ml) 25,000 unit in 250 mls @ 0 mls/hr IV.CONT TITRATE PRN; Protocol PRN Reason: Per Protocol Last Titration: 06/30/18 13:45 Dose: 0 units/hr, 0 mls/hr Sodium Chloride (Ns Inj) 1,000 mls @ 100 mls/hr IV.SIG .Q10H [facility] Last Admin: 06/29/18 20:46 Dose: 100 mls/hr Levothyroxine Sodium (Synthroid) 100 mcg PO DAILY@0600 [facility] Last Admin: 07/01/18 05:48 Dose: 100 mcg Nitroglycerin (Nitro-Bid 2% Oint) 0.5 inch TOPICAL Q6HR [facility] Last Admin: 07/01/18 11:56 Dose: 0.5 inch Quetiapine Fumarate (Seroquel) 200 mg PO HS [facility] Last Admin: 06/30/18 21:06 Dose: 200 mg Sodium Chloride (Ns Flush) 2 ml IV.FLUSH BID [facility] Last Admin: 07/01/18 09:26 Dose: 2 ml Sodium Chloride (Ns Flush) 2 ml IV.FLUSH PRN PRN PRN Reason: FLUSH AFTER USING IV ACCESS Sodium Chloride (Ns Flush) 2 ml IV.FLUSH BID [facility] Last Admin: 07/01/18 09:27 Dose: Not Given Sodium Chloride (Ns Flush) 2 ml IV.FLUSH PRN PRN PRN Reason: FLUSH AFTER USING IV ACCESS Topiramate (Topamax) 200 mg PO BID [facility] Last Admin: 07/01/18 09:26 Dose: 200 mg Allergies Allergy/AdvReac Type Severity Reaction Status Date / Time diphenhydramine Allergy Severe NONE Verified 06/27/18 14:09 latex Allergy Severe Hives Verified 06/27/18 14:09 adhesive Allergy Unknown Rash Verified 06/27/18 14:09 Home Medications Medication Instructions Recorded Confirmed Type amlodipine 5 mg PO HS 06/27/18 06/27/18 History atorvastatin 80 mg PO DAILY 06/27/18 06/27/18 History diazepam [Valium] 5 mg PO BID 06/27/18 06/27/18 History divalproex [Depakote ER] 500 mg PO BID 06/27/18 06/27/18 History duloxetine [Cymbalta] 60 mg PO DAILY 06/27/18 06/27/18 History famotidine [Pepcid] 40 mg PO DAILY 06/27/18 06/27/18 History hydrocodone-acetaminophen [[place]] 1 tab PO TID 06/27/18 06/27/18 History levothyroxine [Synthroid] 100 mcg PO DAILY 06/27/18 06/27/18 History quetiapine [Seroquel] 200 mg PO HS 06/27/18 06/27/18 History topiramate [Topamax] 200 mg PO BID 06/27/18 06/27/18 History Physical Exam Vital signs: Vital Signs 06/30/18 15:00 06/30/18 15:36 06/30/18 16:00 Temperature 97.8 F Pulse Rate 64 62 66 Respiratory Rate 16 Blood Pressure 108/77 Pulse Oximetry 99 06/30/18 17:00 06/30/18 18:00 06/30/18 19:00 Temperature Pulse Rate 72 74 66 Respiratory Rate Blood Pressure Pulse Oximetry 06/30/18 20:00 06/30/18 21:00 06/30/18 21:40 Temperature 97.6 F Pulse Rate 74 70 Respiratory Rate 16 16 Blood Pressure 130/76 Pulse Oximetry 99 06/30/18 22:00 06/30/18 23:00 06/30/18 23:28 Temperature 98.1 F Pulse Rate 72 72 69 Respiratory Rate 16 Blood Pressure 124/75 Pulse Oximetry 98 07/01/18 00:00 07/01/18 01:00 07/01/18 02:00 Temperature Pulse Rate 69 62 66 Respiratory Rate Blood Pressure Pulse Oximetry 07/01/18 03:00 07/01/18 03:36 07/01/18 03:37 Temperature 98.4 F Pulse Rate 64 63 Respiratory Rate 16 16 Blood Pressure 105/64 Pulse Oximetry 99 07/01/18 04:00 07/01/18 05:00 07/01/18 05:54 Temperature Pulse Rate 64 63 Respiratory Rate 16 Blood Pressure Pulse Oximetry 07/01/18 06:00 07/01/18 07:00 07/01/18 07:37 Temperature 97.8 F Pulse Rate 68 63 61 Respiratory Rate 20 Blood Pressure 101/66 Pulse Oximetry 100 07/01/18 08:00 07/01/18 09:00 07/01/18 10:00 Temperature Pulse Rate 64 68 65 Respiratory Rate Blood Pressure Pulse Oximetry 07/01/18 10:56 07/01/18 11:00 07/01/18 12:00 Temperature 97.4 F L Pulse Rate 64 80 Respiratory Rate 20 Blood Pressure 96/60 L Pulse Oximetry 99 07/01/18 13:00 Temperature Pulse Rate 84 Respiratory Rate Blood Pressure Pulse Oximetry Intake & Output 06/30/18 07/01/18 07/01/18 18:59 06:59 18:59 Intake Total 1420 / 1420 240 / 240 Output Total 1600 / 1600 1949 Balance -180 / -180 -1710 / -1710 Weight 63 kg Intake: Oral 920 / 920 240 / 240 Anesthesia Amount 500 / 500 Output: Urine 1600 / 1600 1949 Other: Date of Last Bowel Movement 06/29/18 06/29/18 # Bowel Movements 0 - Constitutional no acute distress - Routine HEENT Exam Head: Present: normocephalic - Routine Neck Exam Present: supple - Routine Respiratory Exam Present: CTA bilaterally - Routine Cardiovascular Exam Present: S1, S2 - Routine Abdominal Exam Present: soft - Routine Extremities Exam Comments: no marcin Results 06/30/18 04:29 06/30/18 04:29 Cardiac Enzymes 06/30/18 07/01/18 Range/Units 04:29 10:12 Troponin I Less than 0.02 L Less than 0.02 L (0.02-0.05) ng/mL Coagulation 06/30/18 Range/Units 04:29 APTT 45.5 H (23.4-31.7) sec CBC 06/30/18 Range/Units 04:29 WBC 4.7 (4.0-11.0) th/mm3 RBC 3.70 L (4.50-5.90) mil/mm3 Hgb 11.6 L (13.0-17.0) gm/dL Hct 33.9 L (39.0-51.0) % Plt Count 168 (150-450) th/mm3 Comprehensive Metabolic Panel 06/30/18 Range/Units 04:29 Sodium 142 (136-145) meq/L Potassium 3.9 (3.5-5.1) meq/L Chloride 111 H (98-107) meq/L Carbon Dioxide 23.5 (21.0-32.0) meq/L BUN 12 (7-18) mg/dL Creatinine 0.81 (0.60-1.30) mg/dL Calcium 8.1 L (8.5-10.1) mg/dL Intake and Output 06/30/18 07/01/18 07/01/18 22:59 06:59 14:59 Intake Total 1420 / 1420 240 / 240 Output Total 1600 / 1600 1949 Balance -180 / -180 -1710 / -1710 Intake: Oral 920 / 920 240 / 240 Anesthesia Amount 500 / 500 Output: Urine 1600 / 1600 1949 Other: Date of Last Bowel Movement 06/29/18 06/29/18 # Bowel Movements 0 Weight 63 kg Assessment and Plan - Assessment (1) Chest pain Code(s): R07.9 - Chest pain, unspecified Status: Acute - Plan 1.) CAD - mild, noncardiac chest pain, continue aspirin, lipitor, coreg. I strongly advised the patient to stop smoking
--- NOTE | 2018-07-01 14:32 | P.DS ---
Date of admission: 06/27/18 14:32 Primary care physician: No Primary Care Physician Anticipated date of discharge: 07/01/18 Brief History from admission: 62-year-old male with known history of organic brain disease, hypertension, hyper lipidemia, coronary artery disease, myocardial infarction, seizures who presented to hospital because of chest pain. Patient states that over the last 3 days has been experiencing intermittent chest discomfort located in the middle part of his chest radiating into the left anterior chest left arm with associated shortness of breath, diaphoresis that lasts for a couple minutes at a time and then resolves on its own. The pain can happen during rest and exertion. Patient states the pain has woke him up while he was sleeping throughout the night. The patient indicates that this is same type of pain he is experiencing when he had his first heart attack. This made the patient concerned. The patient states that he was across the street and he called the ER and told them of his symptoms so they recommended him to come to the hospital for evaluation. When the patient presented the emergency department he was having the chest pain and was given nitroglycerin with resolution of his pain. However, the pain continued to come back, the patient was given Dilaudid for pain control without any significant improvement. Patient states that the pain is only relieved with nitroglycerin. The ER physician recommended the patient be admitted for further evaluation and management. He did contact the charger who recommended that the patient be in intermediate care, placed on heparin drip and admitted to [facility]. DS: Diagnosis - Discharge Diagnosis (1) Chest pain Status: Acute DS: Medications - Discharge Medications Prescriptions: aspirin 81 mg PO DAILY 90 Days #90 tab carvedilol [Coreg] 3.125 mg PO BID 90 Days #180 tab nitroglycerin [Nitro-Bid] 0.5 inch TOPICAL Q6HR 30 Days g DS: Summary Hospital Course: . Mr. Dorsey is a 62-year-old male with a history of coronary artery disease who presented to the emergency department in [place] on 06/27/2018 due to intermittent chest pain for 3 days prior to this admission. He reports substernal and left-sided chest pain radiating to his left shoulder. He does report some nausea. His chest pain occurs both at rest and on exertion. Patient apparently had cardiac cath before and was offered cardiac stent placement in [place]. However he refused due to his lack of confidence in the medical facility. Unstable angina S/P cardiac cath- mild 2V disease Currently on aspirin 325 mg p.o. daily, atorvastatin 80 mg p.o. daily, carvedilol 3.125 mg p.o. twice daily. - ROSARIO heparin drip - topical nitrates - atypical CP- reporcucible with palpation- some anxiety component- discussed with him results of cath and blood works - a repeat troponin was ordered by Dr. Pierson- pending - right groin -cath site- no hematoma Seizure disorder Anxiety Continue duloxetine 60 mg p.o. daily, Seroquel 200 mg p.o. nightly Continue diazepam 5 mg p.o. twice daily, Depakote 500 mg p.o. twice daily. Continue Topamax 200 mg p.o. twice daily - OP ff up with Dr. Patterson"- psychaitrist Hypotension- improved- up and ambualting Blood pressure improved, currently in the 110 range systolic. Hypothyroidism GERD Continue levothyroxine 100 mcg p.o. daily and famotidine 40 mg p.o. daily. Full code. ROSARIO xie today CM consult- asling for support- request for C - Time Spent with Patient Total time spent providing and/or coordinating discharge services: Greater than 30 minutes Exam Vital signs: Vital Signs 06/30/18 15:00 06/30/18 15:36 06/30/18 16:00 Temperature 97.8 F Pulse Rate 64 62 66 Respiratory Rate 16 Blood Pressure 108/77 Pulse Oximetry 99 06/30/18 17:00 06/30/18 18:00 06/30/18 19:00 Temperature Pulse Rate 72 74 66 Respiratory Rate Blood Pressure Pulse Oximetry 06/30/18 20:00 06/30/18 21:00 06/30/18 21:40 Temperature 97.6 F Pulse Rate 74 70 Respiratory Rate 16 16 Blood Pressure 130/76 Pulse Oximetry 99 06/30/18 22:00 06/30/18 23:00 06/30/18 23:28 Temperature 98.1 F Pulse Rate 72 72 69 Respiratory Rate 16 Blood Pressure 124/75 Pulse Oximetry 98 07/01/18 00:00 07/01/18 01:00 07/01/18 02:00 Temperature Pulse Rate 69 62 66 Respiratory Rate Blood Pressure Pulse Oximetry 07/01/18 03:00 07/01/18 03:36 07/01/18 03:37 Temperature 98.4 F Pulse Rate 64 63 Respiratory Rate 16 16 Blood Pressure 105/64 Pulse Oximetry 99 07/01/18 04:00 07/01/18 05:00 07/01/18 05:54 Temperature Pulse Rate 64 63 Respiratory Rate 16 Blood Pressure Pulse Oximetry 07/01/18 06:00 07/01/18 07:00 07/01/18 07:37 Temperature 97.8 F Pulse Rate 68 63 61 Respiratory Rate 20 Blood Pressure 101/66 Pulse Oximetry 100 07/01/18 08:00 07/01/18 09:00 07/01/18 10:00 Temperature Pulse Rate 64 68 65 Respiratory Rate Blood Pressure Pulse Oximetry 07/01/18 10:56 07/01/18 11:00 07/01/18 12:00 Temperature 97.4 F L Pulse Rate 64 80 Respiratory Rate 20 Blood Pressure 96/60 L Pulse Oximetry 99 07/01/18 13:00 07/01/18 14:00 Temperature Pulse Rate 84 89 Respiratory Rate Blood Pressure Pulse Oximetry Intake & Output 06/30/18 07/01/18 07/01/18 18:59 06:59 18:59 Intake Total 1420 / 1420 240 / 240 Output Total 1600 / 1600 1949 / 1950 Balance -180 / -180 -1710 / -1710 Weight 63 kg Intake: Oral 920 / 920 240 / 240 Anesthesia Amount 500 / 500 Output: Urine 1600 / 1600 1949 / 1949 Other: Date of Last Bowel Movement 06/29/18 06/29/18 # Bowel Movements 0 Narrative: GENERAL: Alert, NAD. no acute distress SKIN: Warm and dry. HEAD: Normocephalic. EYES: No scleral icterus. No injection or drainage. NECK: Supple, trachea midline. CARDIOVASCULAR: Regular rate and rhythm without murmurs, gallops, or rubs. some pain when pressed on sternu RESPIRATORY: Moderate air entry, no wheezing noted. No accessory muscle use. GASTROINTESTINAL: Abdomen soft, non-tender, nondistended. MUSCULOSKELETAL: No cyanosis, or edema. BACK: Nontender without obvious deformity. No CVA tenderness. Results Procedures completed during hospitalization: 06/30. cardiac cath Angiographically mild 2-vessel coronary artery disease and left dominant system as detailed above. Normal to low normal LV systolic function, EF 50-55%. Focal fibrocalcification of the proximal LAD as detailed above. Labs on day of discharge: Labs from last 24 hours 07/01/18 10:12 Troponin I Less than 0.02 L - Impressions ITS Impressions Chest X-Ray 06/27/18 12:17 CONCLUSION: 1. No acute cardiopulmonary disease. Discharge Plan - Discharge Disposition Patient Disposition: 01 Discharge Home - Discharge Condition Condition: Stable - Discharge Order Discharge Orders: Discharge Order (Routine); Ordered 07/01/18 Ordered By: Ad Gan ED Use Only Admit Order (Routine); Ordered 06/27/18 Ordered By: Reinier Young - Discharge Details Anticipated Discharge Date: 07/01/18 - Physicians Team Primary Care Provider: Primary Care Physici,No Attending Provider: Ad Gan Other Providers: Tyler Pierson MD
[2018-07-01 14:46] VITALS: BP 97/56; TEMP 98.4; O2SAT 98
[2018-07-01 15:10] VITALS: PULSE 61
== END 2018-07-01 16:43 | disposition home or self-care (01) ==
LOC: PHED 12:00 → INTOOBSV 14:32 → PHEDA 14:32 → HCPC 17:46 → HCIS 06-30 11:13
PROVIDERS: ADMIT Internal Medicine; ATTEND Internal Medicine